=== PATIENT | female | born 1975 | race Caucasian/White ===

== ENCOUNTER → 2017-08-28 | Outpatient (CLI) | payer OTHER ==
[2017-08-28 11:19] LABS: ALT 42 U/L (9-52); AST 30 U/L (14-36); Albumin 3.6 g/dL (3.5-5.0); Alkaline Phosphatase 80 U/L (38-126); Anion Gap 10 mmol/L; Blood Urea Nitrogen 12 mg/dL (7-17); Carbon Dioxide 25 mmol/L (22-30); Chloride 99 mmol/L (98-107); Cholesterol 155 mg/dL (<200); Glucose 276 mg/dL (74-99); HDL Cholesterol 24 mg/dL (40-60); LDL Cholesterol,Calculated 94 mg/dL (0-99); Potassium 4.6 mmol/L (3.5-5.1); Sodium 134 mmol/L (137-145); Total Bilirubin 0.4 mg/dL (0.2-1.3); Total Protein 6.3 g/dL (6.3-8.2); Triglycerides 186 mg/dL (<150)
[2017-08-28 17:54] LABS: Hemoglobin A1C 10.4 % (4.0-6.0)
== END | disposition home or self-care (01) ==
LOC: LABWHC1 09:45
PROVIDERS: ATTEND Internal Medicine Endocrinology, Diabetes & Metabolism
DX: E11.65 Type 2 diabetes mellitus with hyperglycemia (principal)
CPT/HCPCS: 36415; 80053; 80061; 82043; 82570; 83036

== ENCOUNTER → 2018-03-20 | Outpatient (CLI) | payer BC ==
--- NOTE | 2018-03-20 17:37 | P.HPBAR ---
Bariatric H&P - History & Physicial H&P Date: 03/20/18 History & Physicial: Visit/CC: Patient initial contact: Initial weight: 117.651 kg Initial weight in pounds: Height: Initial BMI: Last weight: Current weight: Current weight in pounds: Current BMI: [place] body weight (based on NIH guidelines): Excess body weight loss: The patient is a 42 year-old F who presents for Bariatric Assessment. HPI: She is looking into the sleeve and now she is looking into the gastric bypass. No Crohns. No stomach or esophageal cancer. She has GERD. She has new heartburn on her diet. Has family history of all family members with troubles with their weight. Overweight her whole life. She has tried weight watchers, adipex. Most weight loss of 20 to 30 pounds with return. Highest weight of 286 pounds. History of cholecystectomy. She is pending a sleep study. DVTs in grandmother. She has history of panniculitis. PLAN: 1. Needs EGD 2. [facility] Past Medical History Past Medical History: Diabetes Mellitus, Hyperlipidemia, Hypertension History of Any Multi-Drug Resistant Organisms: None Reported Past Surgical History: Adenoidectomy, Cholecystectomy, Tonsillectomy Past Anesthesia/Blood Transfusion Reactions: Motion Sickness, Postoperative Nausea & Vomiting (PONV) Past Psychological History: Anxiety, Depression Smoking Status: Former smoker Past Alcohol Use History: Rare Additional Past Alcohol Use History / Comment(s): stopped smoking in 2005 Past Drug Use History: None Reported - Past Family History Mother Family Medical History: AICD/Pacemaker, Hypertension Additional Family Medical History / Comment(s): maternal hx of diabetes Father Family Medical History: No Reported History Bariatric Checklist Checklist: Plan: Checklist: EGD: 1. Hiatal hernia: 2. H. Pylori: HgbA1c: Vitamin D: Smoking: Former smoker Primary care physician referral: Psychiatry clearance: Cardiology clearance: Sleep study: Diet journal: VTE risk score: VTE risk level: Rehab needs at discharge:
[2018-03-21 17:25] VITALS: BP 129/77; PULSE 90; TEMP 98.1; BMI 44.4
== END | disposition home or self-care (01) ==
LOC: BARWHC3 16:50
PROVIDERS: ATTEND Surgery Plastic and Reconstructive Surgery
DX: E66.3 Overweight (principal); K21.9 Gastro-esophageal reflux disease without esophagitis; Z68.41 Body mass index [BMI] 40.0-44.9, adult; Z87.2 Personal history of diseases of the skin and subcutaneous tissue; Z90.49 Acquired absence of other specified parts of digestive tract; Z87.891 Personal history of nicotine dependence; Z90.89 Acquired absence of other organs
CPT/HCPCS: 99211

== ENCOUNTER → 2018-03-23 | Outpatient (CLI) | payer BC ==
[2018-03-23 10:28] LABS: Basophils # (A) 0.1 k/uL (0-0.2); Basophils % (A) 1 %; Eosinophils # (A) 0.4 k/uL (0-0.7); Eosinophils % (A) 6 %; HCT 46.1 % (34.0-46.0); HGB 14.8 gm/dL (11.4-16.0); Lymphocytes # (A) 2.1 k/uL (1.0-4.8); Lymphocytes % (A) 32 %; MCH 30.3 pg (25.0-35.0); MCHC 32.2 g/dL (31.0-37.0); MCV 94.1 fL (80.0-100.0); Mean Platelet Volume 7.1; Monocytes # (A) 0.4 k/uL (0-1.0); Monocytes % (A) 6 %; Neutrophils # (A) 3.6 k/uL (1.3-7.7); Neutrophils % (A) 53 %; Platelet Count 255 k/uL (150-450); RBC 4.89 m/uL (3.80-5.40); RDW 13.8 % (11.5-15.5); WBC 6.8 k/uL (3.8-10.6)
[2018-03-23 10:35] LABS: INR 0.9 (<1.2); Partial Thromboplastin Time 25.5 sec (22.0-30.0); Prothrombin Time 10.1 sec (9.0-12.0)
[2018-03-23 17:01] LABS: Iron Saturation 26.5 (12.00-45.00)
[2018-03-23 17:02] LABS: Albumin 4.6 g/dL (3.80-4.90); Albumin/Globulin Ratio 1.84 (1.60-3.17); Calcium 9.7 mg/dL (8.7-10.3); Globulin 2.5 g/dL (1.6-3.3); LDL Cholesterol,Calculated 95.4 mg/dL (0.0-131.0); Magnesium 1.7 mg/dL (1.5-2.4); Phosphorus 4.1 mg/dL (2.4-5.1); Potassium 5.1 mmol/L (3.5-5.5); Total Bilirubin 0.5 mg/dL (0.3-1.2); Total Protein 7.1 g/dL (6.2-8.2); VLDL Calculation 26.6 mg/dL (5.00-40.00)
[2018-03-23 17:10] LABS: T4, Free (Free Thyroxine) 1.3 ng/dL (0.80-1.80)
[2018-03-23 17:11] LABS: Vitamin D 25 Hydroxy 35.5 ng/mL (30.0-100.0)
[2018-03-23 17:48] LABS: Parathyroid Hormone Intact 26.7 pg/mL (14.0-72.0)
[2018-03-23 20:18] LABS: Hemoglobin A1C 7.8 % (4.0-6.0)
[2018-03-26 08:28] LABS: Zinc, Serum 91 ug/dL (60-130)
[2018-03-26 09:45] LABS: Vitamin A 55 ug/dL (38-106)
[2018-03-27 07:52] LABS: Vit B1(Thiamine) 95 ug/L (38-122)
== END | disposition home or self-care (01) ==
LOC: LABWHC1 08:56
PROVIDERS: ATTEND Surgery Plastic and Reconstructive Surgery
DX: I10 Essential (primary) hypertension (principal); E78.2 Mixed hyperlipidemia; E11.21 Type 2 diabetes mellitus with diabetic nephropathy; E66.01 Morbid (severe) obesity due to excess calories; E21.1 Secondary hyperparathyroidism, not elsewhere classified; E89.1 Postprocedural hypoinsulinemia; D50.9 Iron deficiency anemia, unspecified; K90.9 Intestinal malabsorption, unspecified; E55.9 Vitamin D deficiency, unspecified; K76.9 Liver disease, unspecified; N19 Unspecified kidney failure; K50.90 Crohn's disease, unspecified, without complications; Z68.42 Body mass index [BMI] 45.0-49.9, adult
CPT/HCPCS: 36415; 80053; 80061; 82043; 82306; 82525; 82570; 82607; 82728; 82746; 83036; 83540; 83550; 83735; 83970; 84100; 84134; 84255; 84425; 84439; 84443; 84590; 84630; 85025; 85610; 85730; 93005

== ENCOUNTER → 2018-04-25 | Outpatient (CLI) | payer BC ==
--- NOTE | 2018-04-25 18:13 | PN ---
PROGRESS NOTE DATE OF SERVICE: 04/25/2018 This patient is a 42-year-old lady who has been re-evaluated in Sleep Center for obstructive sleep apnea-hypopnea syndrome. The patient had a polysomnogram done in January of 2016 which showed obstructive sleep apnea-hypopnea syndrome. Apnea-hypopnea index was 11 with oxygen desaturation to 74.6%. At that time the patient was not started on treatment with CPAP because the patient could not come back for the second sleep study at that moment; and finally, because of weather problems related to snowstorms, she was not started on CPAP. At present the patient is preparing for bariatric surgery and has been referred for re- evaluation of possible obstructive sleep apnea-hypopnea syndrome. Her sleep schedule on weekdays is from 10 p.m. to 6:30 a.m. and on weekends from 11 p.m. to 8:30 a.m. She wakes up several times at night. No history of hypnagogic hallucinations, sleep paralysis or cataplexy. She continues to have snoring. Steward Sleepiness Scale is 6. PAST MEDICAL HISTORY: Positive for: 1. Diabetes. 2. Hypertension. 3. Hyperlipidemia. 4. Anxiety. 5. Depression. 6. Lipoma of the right hip. PAST SURGICAL HISTORY: 1. Tonsillectomy. 2. Cholecystectomy. 3. Surgery for lipoma of right hip in 2015. MEDICATIONS: 1. NovoLog. 2. Janumet. 3. Glimepiride. 4. Farxiga. 5. Atorvastatin. 6. Lisinopril. 7. Gabapentin. 8. Phentermine. 9. Paroxetine. 10.Bupropion. 11. . 12.Xanax. PHYSICAL EXAMINATION: GENERAL: A pleasant patient in no distress. VITAL SIGNS: BP 112/61, HR 85, RR 16, height 5 feet 3-3/4 inches, weight 253.8 pounds, body mass index 43.8, temperature 98.9, oxygen saturation at room air 95%. HEENT: PERRLA, EOMI. Evaluation of oropharynx showed tongue protrudes midline. Moderately low to normal position of soft palate. NECK: Supple. No JVD. Thyroid is not palpable. LUNGS: Clear to percussion and to auscultation. Good air exchange. No wheezing or rhonchi. HEART: S1, S2 regular. No murmurs, gallops or rubs. ABDOMEN: Obese. EXTREMITIES: No clubbing or cyanosis. PROCESS SAFETY ENGINEER: Awake, alert, and oriented X3. Cranial nerves 2 to 7 intact. There is no fasciculation or atrophy. noted. No focal deficits observed. IMPRESSION: 1. Snoring, obstructive sleep apnea-hypopnea syndrome documented 2 years ago by polysomnogram. The patient continues to wake up from sleep with nocturia. Obstructive sleep apnea-hypopnea syndrome. 2. Obesity; body mass index 43.8. Patient is preparing for possible bariatric surgery. 3. Hypertension. 4. Diabetes mellitus. 5. Hyperlipidemia. 6. Anxiety. 7. Depression. 8. Status post tonsillectomy. 9. Status post cholecystectomy. 10.Status post lipoma of right hip removed. PLAN: 1. Home sleep apnea test for re-evaluation of patient's breathing during sleep. 2. Losing weight. 3. Following plan after reviewing sleep study. 4. No driving if feeling any sleepiness. 5. Preferable position during sleep is on the side. Thank you very much for allowing me to participate in the management of your patient. Sincerely, Yuniel Stallworth MD, PhD, FAASM Diplomat of [place] [employer] [place] [employer] Drying [employer] [facility] [place] MMODL / IJN: [id number] /
== END ==
LOC: SLEEP 16:20
PROVIDERS: ATTEND Internal Medicine
DX: G47.33 Obstructive sleep apnea (adult) (pediatric) (principal); E66.9 Obesity, unspecified; R35.1 Nocturia; E11.9 Type 2 diabetes mellitus without complications; I10 Essential (primary) hypertension; E78.5 Hyperlipidemia, unspecified; F41.9 Anxiety disorder, unspecified; F32.9 Major depressive disorder, single episode, unspecified; Z90.49 Acquired absence of other specified parts of digestive tract; Z90.89 Acquired absence of other organs; Z86.018 Personal history of other benign neoplasm; Z98.890 Other specified postprocedural states; Z79.4 Long term (current) use of insulin; Z79.84 Long term (current) use of oral hypoglycemic drugs; Z79.899 Other long term (current) drug therapy; Z68.41 Body mass index [BMI] 40.0-44.9, adult
CPT/HCPCS: 99211

== ENCOUNTER 2018-05-13 06:48 | Day surgery (SDC) | payer BC ==
[2018-05-09 12:10] VITALS: BMI 43.0
--- NOTE | 2018-05-13 06:10 | P.GSHP ---
History of Present Illness H&P Date: 05/13/18 CHIEF COMPLAINT: GERD HISTORY OF PRESENT ILLNESS: The patient is a 43-year-old female who presents reports gastroesophageal reflux disease. Upper endoscopy was offered for further evaluation and management. PAST MEDICAL HISTORY: Please see list. PAST SURGICAL HISTORY: Please see list. MEDICATIONS: Please see list. ALLERGIES: Please see list. SOCIAL HISTORY: No illicit drug use FAMILY HISTORY: No reports of Crohn disease or ulcerative colitis. REVIEW OF ORGAN SYSTEMS: CONSTITUTIONAL: No reports of fevers or chills. GI: Denies any blood in stools or constipation. PHYSICAL EXAM: VITAL SIGNS: Stable GENERAL: Well-developed and pleasant in no acute distress. HEENT: No scleral icterus. Extraocular movements grossly intact. Moist buccal mucosa. NECK: Supple without lymphadenopathy. CHEST: Unlabored respirations. Equal bilateral excursions. CARDIOVASCULAR: Regular rate and rhythm. Distal 2+ pulses. ABDOMEN: Soft, nondistended. MUSCULOSKELETAL: No clubbing, cyanosis, or edema. ASSESSMENT: 1. Gastroesophageal reflux disease PLAN: 1. Recommend proceeding with an upper endoscopy Past Medical History Past Medical History: Diabetes Mellitus, Hyperlipidemia, Hypertension, Neurologic Disorder, Skin Disorder Additional Past Medical History / Comment(s): diabetic neuropathy to bilateral feet, psoriasis, History of Any Multi-Drug Resistant Organisms: None Reported Past Surgical History: Adenoidectomy, Cholecystectomy, Tonsillectomy Additional Past Surgical History / Comment(s): lypoma removed from right hip in 2016, EGD Past Anesthesia/Blood Transfusion Reactions: Motion Sickness, Postoperative Nausea & Vomiting (PONV) Additional Past Anesthesia/Blood Transfusion Reaction / Comment(s): No blood transfusion to date Smoking Status: Former smoker - Past Family History Mother Family Medical History: AICD/Pacemaker, Hypertension Additional Family Medical History / Comment(s): maternal hx of diabetes Father History Unknown: Yes Family Medical History: No Reported History Medications and Allergies Home Medications Medication Instructions Recorded Confirmed Type Atorvastatin [Lipitor] 10 mg PO HS 09/08/15 05/09/18 History Lisinopril-Hctz 20-12.5 mg 1 tab PO QAM 09/08/15 05/09/18 History [Zestoretic 20-12.5] PARoxetine HCL 40 mg PO HS 09/08/15 05/09/18 History buPROPion HCL [Wellbutrin SR] 200 mg PO BID 09/08/15 05/09/18 History sitaGLIPtin PHOS/metFORMIN HCL 1 each PO BID 09/08/15 05/09/18 History [Janumet 50-1,000 mg Tablet] ALPRAZolam [Xanax] 0.25 mg PO DAILY PRN 10/07/15 05/09/18 History Multivitamins, Thera [Multivitamin] 1 tab PO DAILY 10/07/15 05/09/18 History Insuln Asp Prt/Insulin Aspart 82 units SQ AC-BRKFST 12/15/15 05/09/18 History [NovoLOG MIX 70-30 VIAL] Insuln Asp Prt/Insulin Aspart 86 units SQ AC-SUPPER 12/15/15 05/09/18 History [NovoLOG MIX 70-30 VIAL] Clobetasol Propionate [Temovate 1 applic TOPICAL BID 03/21/18 05/09/18 History 0.05% Cream] Dapagliflozin Propanediol [Farxiga] 5 mg PO DAILY 03/21/18 05/09/18 History Glimepiride [Amaryl] 4 mg PO DAILY 03/21/18 05/09/18 History Phentermine HCl [Adipex-P] 37.5 mg PO DAILY 03/21/18 05/09/18 History Triamcinolone 0.1% Cream [Kenalog 1 applicatio TOPICAL TID PRN 03/21/18 05/09/18 History 0.1% Cream] Semaglutide [Ozempic] 0.5 mg SQ TH 05/09/18 05/09/18 History Allergies Allergy/AdvReac Type Severity Reaction Status Date / Time environmental AdvReac Unknown Uncoded 05/09/18 12:06
[~2018-05-13 06:48] MED LIST: LACTATED RINGERS 1,000 ML IV SCH
[2018-05-13 07:22] VITALS: RESP 16; TEMP 98.5
[2018-05-13 07:26] LABS: Glucose,Whole Blood 133 mg/dL (75-99)
[2018-05-13] MEDS ORDERED: KETAMINE 10 MG/ML 20 ML VIAL ONE (07:31)
[2018-05-13] MEDS ORDERED: LIDOCAINE 1% INJ 10MG/ML (20 ML MDV) ONE (07:31)
[2018-05-13] MEDS ORDERED: GLYCOPYRROLATE 0.2 MG/ML 2 ML VIAL ONE (07:31)
[2018-05-13] MEDS ORDERED: PROPOFOL 10 MG/ML 20 ML VIAL IV ONE (07:31)
--- NOTE | 2018-05-13 07:43 | P.PCN ---
Date of Procedure: 05/13/18 Description of Procedure: PREOPERATIVE DIAGNOSIS: Gastroesophageal reflux disease. Morbid obesity. POSTOPERATIVE DIAGNOSIS: Morbid obesity. Gastritis. Gastroesophageal reflux disease. Diaphragmatic hiatal hernia OPERATION: Esophagogastroduodenoscopy with biopsies along antrum. SURGEON: Stefanie Isabel MD ANESTHESIA: MAC. INDICATIONS: The patient is a 43-year-old female who presents with a history of reflux disease. Benefits and risks of the procedure were described. Informed consent was obtained. DESCRIPTION: The patient was brought into the endoscopy suite and laid in the left lateral decubitus position. An Olympus gastroscope was passed along the posterior oropharynx down to the distal esophagus where the squamocolumnar junction was encountered at 37 cm from the incisors. The stomach was entered and no bile reflux was found. Additional findings are listed below. Biopsies with cold f orceps were obtained of the antrum. The first through third portion of the duodenum was examined and unremarkable. Retroflexion of the scope confirmed Hill grade 4 lower esophageal valve. The squamocolumnar junction demonstrated LA grade B erosive esophagitis. The stomach was desufflated. The patient tolerated the procedure well. FINDINGS: Squamocolumnar junction 37 cm from the incisors. Diaphragmatic hiatus at 40 cm. Hiatal hernia, 3 cm Hill grade 4 lower esophageal valve. LA grade B erosive esophagitis. No active duodenitis. Chronic gastritis, superficial RECOMMENDATIONS: Upper endoscopy as needed. Plan - Discharge Summary Discharge Rx Participant: Yes New Discharge Prescriptions: New Omeprazole 40 mg PO DAILY #14 capsule. No Action Atorvastatin [Lipitor] 10 mg PO HS sitaGLIPtin PHOS/metFORMIN HCL [Janumet 50-1,000 mg Tablet] 1 each PO BID buPROPion HCL [Wellbutrin SR] 200 mg PO BID Lisinopril-Hctz 20-12.5 mg [Zestoretic 20-12.5] 1 tab PO QAM PARoxetine HCL 40 mg PO HS Multivitamins, Thera [Multivitamin] 1 tab PO DAILY ALPRAZolam [Xanax] 0.25 mg PO DAILY PRN PRN Reason: Anxiety Insuln Asp Prt/Insulin Aspart [NovoLOG MIX 70-30 VIAL] 82 units SQ AC-BRKFST Insuln Asp Prt/Insulin Aspart [NovoLOG MIX 70-30 VIAL] 86 units SQ AC-SUPPER Triamcinolone 0.1% Cream [Kenalog 0.1% Cream] 1 applicatio TOPICAL TID PRN PRN Reason: Rash Clobetasol Propionate [Temovate 0.05% Cream] 1 applic TOPICAL BID Phentermine HCl [Adipex-P] 37.5 mg PO DAILY Dapagliflozin Propanediol [Farxiga] 5 mg PO DAILY Glimepiride [Amaryl] 4 mg PO DAILY Semaglutide [Ozempic] 0.5 mg SQ TH Gabapentin [Neurontin] 300 mg PO TID Discharge Medication List Atorvastatin [Lipitor] 10 mg PO HS 09/08/15 [History] Lisinopril-Hctz 20-12.5 mg [Zestoretic 20-12.5] 1 tab PO QAM 09/08/15 [History] PARoxetine HCL 40 mg PO HS 09/08/15 [History] buPROPion HCL [Wellbutrin SR] 200 mg PO BID 09/08/15 [History] sitaGLIPtin PHOS/metFORMIN HCL [Janumet 50-1,000 mg Tablet] 1 each PO BID 09/08/15 [History] ALPRAZolam [Xanax] 0.25 mg PO DAILY PRN 10/07/15 [History] Multivitamins, Thera [Multivitamin] 1 tab PO DAILY 10/07/15 [History] Insuln Asp Prt/Insulin Aspart [NovoLOG MIX 70-30 VIAL] 82 units SQ AC-BRKFST 12/15/15 [History] Insuln Asp Prt/Insulin Aspart [NovoLOG MIX 70-30 VIAL] 86 units SQ AC-SUPPER 12/15/15 [History] Clobetasol Propionate [Temovate 0.05% Cream] 1 applic TOPICAL BID 03/21/18 [History] Dapagliflozin Propanediol [Farxiga] 5 mg PO DAILY 03/21/18 [History] Glimepiride [Amaryl] 4 mg PO DAILY 03/21/18 [History] Phentermine HCl [Adipex-P] 37.5 mg PO DAILY 03/21/18 [History] Triamcinolone 0.1% Cream [Kenalog 0.1% Cream] 1 applicatio TOPICAL TID PRN 03/21/18 [History] Semaglutide [Ozempic] 0.5 mg SQ TH 05/09/18 [History] Gabapentin [Neurontin] 300 mg PO TID 05/13/18 [History] Omeprazole 40 mg PO DAILY #14 capsule. 05/13/18 [Rx] Follow up Appointment(s)/Referral(s): Bariatric Center,. [NON-STAFF] - 06/12/18 Patient Instructions/Handouts: Hiatal Hernia (DC), Gastroesophageal Reflux Disease (DC) Discharge Disposition: HOME SELF-CARE
[2018-05-13 08:15] VITALS: BP 126/70; PULSE 88
== END 2018-05-13 08:31 | disposition home or self-care (01) ==
LOC: ORWHC2ENDO 06:48
PROVIDERS: ATTEND Surgery Plastic and Reconstructive Surgery
DX: K21.0 Gastro-esophageal reflux disease with esophagitis (principal); E66.01 Morbid (severe) obesity due to excess calories; K29.50 Unspecified chronic gastritis without bleeding; K44.9 Diaphragmatic hernia without obstruction or gangrene; Z79.4 Long term (current) use of insulin; E11.40 Type 2 diabetes mellitus with diabetic neuropathy, unspecified; E78.5 Hyperlipidemia, unspecified; I10 Essential (primary) hypertension; L40.9 Psoriasis, unspecified; Z87.891 Personal history of nicotine dependence; Z82.49 Family history of ischemic heart disease and other diseases of the circulatory system; Z79.899 Other long term (current) drug therapy
CPT/HCPCS: 81025; 88305; 43239; J2001; J2704

== ENCOUNTER → 2018-06-12 | Outpatient (CLI) | payer BC ==
[2018-06-12 14:51] VITALS: BP 121/77; PULSE 87; RESP 16; TEMP 98.3; BMI 43.0
--- NOTE | 2018-06-12 15:54 | P.PN ---
Subjective Progress Note Date: 06/12/18 DATE OF SERVICE: 06/12/2018 CHIEF COMPLAINT: Morbid obesity HISTORY OF PRESENT ILLNESS: Mariama Aquino is a 43-year-old female who comes with lifelong morbid obesity. She is looking into the gastric bypass. She reports moderate gastroesophageal reflux disease and has diabetes type 2. She has completed psych assessment. She has also completed EGD. No reports of fevers or chills. No active abdominal pain, chest pain or dysphagia. At height of 5 feet 4 inches, her ideal body weight is 154 pounds. Today, she comes in 250 pounds from 258 pounds. She has lost 8 pounds in 3 months. Her highest weight was 286 pounds. Her body mass index highest was 49.2. Today her BMI is 43.1. She is 106 pounds overweight. PAST MEDICAL HISTORY: 1. Morbid obesity due to excess calories 2. Body mass index of 49.2, initial 3. Osteoarthritis of the knees. 4. Hypertensive heart disease. 5. Gastroesophageal reflux disease 6. Hyperlipidemia 7. Anxiety disorder 8. Depressive disorder 9. Obstructive sleep apnea 10. Diabetes type 2, insulin dependent 11. Diabetic neuropathy 12. Psoriasis PAST SURGICAL HISTORY: 1. Tonsillectomy 2. Adenoidectomy 3. Cholecystectomy 4. Removal of lipoma HOME MEDICATIONS: ALLERGIES: Home Medications Medication Instructions Recorded Confirmed Atorvastatin [Lipitor] 10 mg PO HS 09/08/15 06/12/18 Lisinopril-Hctz 20-12.5 mg 1 tab PO QAM 09/08/15 06/12/18 [Zestoretic 20-12.5] PARoxetine HCL 40 mg PO HS 09/08/15 06/12/18 buPROPion HCL [Wellbutrin SR] 200 mg PO BID 09/08/15 06/12/18 sitaGLIPtin PHOS/metFORMIN HCL 1 each PO BID 09/08/15 06/12/18 [Janumet 50-1,000 mg Tablet] ALPRAZolam [Xanax] 0.25 mg PO DAILY PRN 10/07/15 06/12/18 Multivitamins, Thera [Multivitamin] 1 tab PO DAILY 10/07/15 06/12/18 Insuln Asp Prt/Insulin Aspart 82 units SQ AC-BRKFST 12/15/15 06/12/18 [NovoLOG MIX 70-30 VIAL] Insuln Asp Prt/Insulin Aspart 86 units SQ AC-SUPPER 12/15/15 06/12/18 [NovoLOG MIX 70-30 VIAL] Clobetasol Propionate [Temovate 1 applic TOPICAL BID 03/21/18 06/12/18 0.05% Cream] Dapagliflozin Propanediol [Farxiga] 5 mg PO DAILY 03/21/18 06/12/18 Glimepiride [Amaryl] 4 mg PO DAILY 03/21/18 06/12/18 Phentermine HCl [Adipex-P] 37.5 mg PO DAILY 03/21/18 06/12/18 Triamcinolone 0.1% Cream [Kenalog 1 applicatio TOPICAL TID PRN 03/21/18 06/12/18 0.1% Cream] Semaglutide [Ozempic] 0.5 mg SQ TH 05/09/18 06/12/18 Gabapentin [Neurontin] 300 mg PO TID 05/13/18 06/12/18 Omeprazole [PriLOSEC] 10 mg PO DAILY 06/12/18 06/12/18 Previous Rx's Medication Instructions Recorded Omeprazole 40 mg PO DAILY #14 capsule. 05/13/18 Allergies Allergy/AdvReac Type Severity Reaction Status Date / Time environmental AdvReac Unknown Uncoded 06/12/18 14:45 SOCIAL HISTORY: Past tobacco use. FAMILY HISTORY: No family history of ulcerative colitis disease or Crohn's disease. Family history of morbid obesity. No lupus in the family. No reports of stomach or esophageal cancer. DVTs in grandmother. REVIEW OF ORGAN SYSTEMS: CONSTITUTIONAL: At height of 5 feet 4 inches, her ideal body weight is 154 pounds. Her highest weight was 286 pounds. Her body mass index highest was 49.2. HEENT: Denies any active troubles with vision or hearing. No troubles with swallowing. ENDOCRINE: Has diabetes. No hypothyroidism. CARDIOVASCULAR: No reports of palpitations or heart attacks or chest pain. RESPIRATORY: Has daytime somnolence. Has asthma. GI: Denies any bright red blood per rectum. No diarrhea. Has gastroesophageal reflux disease. MUSCULOSKELETAL: Has lower back pain and joint pain. Has osteoarthritis of the knees. NEURO: No headaches. No seizure disorders. Has neuropathy PSYCH: Has depression. No suicidal ideation. Has anxiety. RHEUMATOLOGIC: No lupus. No rheumatoid arthritis. HEMATOLOGIC: Denies any abnormal bleeding or bruising. No personal history of DVTs. SKIN: Has rash and panniculitis. No skin cancer. PHYSICAL EXAM: VITAL SIGNS: Height 5 foot 4 inches, weight 250 pounds. BMI 43.1 Vital Signs Temp 98.3 F 06/12/18 14:44 Pulse 87 06/12/18 14:44 Resp 16 06/12/18 14:44 BP 121/77 06/12/18 14:44 Pulse Ox GENERAL: Well-developed in no acute distress. HEENT: No scleral icterus. Extraocular movements grossly intact. Hears conversational speech. No nasal drainage. NECK: Supple without lymphadenopathy. CHEST: Nonlabored respirations with equal bilateral excursions. CARDIOVASCULAR: Regular rate and regular rhythm. Distal 2+ pulses. ABDOMEN: Obese, soft, nontender, nondistended. Has panniculitis. MUSCULOSKELETAL: No clubbing, cyanosis. Gross strength 5/5 distal lower extremities. NEURO: No focal or lateralizing signs. Cranial nerves 2 through 12 grossly within normal limits. PSYCH: Appropriate affect. Alert and oriented to person, place and time. SKIN: Good skin turgor. Well perfused. EGD FINDINGS: Squamocolumnar junction 37 cm from the incisors. Diaphragmatic hiatus at 40 cm. Hiatal hernia, 3 cm Hill grade 4 lower esophageal valve. LA grade B erosive esophagitis. No active duodenitis. Chronic gastritis, superficial Final Pathologic Diagnosis GASTRIC ANTRUM, BIOPSY: Chronic gastritis with minimal activity. Helicobacter pylori organisms are not identified on routine H+E sections. LABS: Hgb A1C elevated 7.8%, ALT elevated 46, HDL is low, Selenium elevated 201 EKG: Normal sinus rhythm ASSESSMENT: 1. Morbid obesity due to excess calories 2. Body mass index of 49.2, initial 3. Osteoarthritis of the knees. 4. Hypertensive heart disease. 5. Gastroesophageal reflux disease 6. Hyperlipidemia 7. Anxiety disorder 8. Depressive disorder 9. Obstructive sleep apnea 10. Diabetes type 2, insulin dependent 11. Diabetic neuropathy 12. Psoriasis 13. Hiatal hernia PLAN: 1. She wants the gastric bypass. Benefits and risk of the procedure including diabetic control, improvement of gastroesophageal reflux disease, and increased complications over 11% per [facility] calculator described. 2. Completion of psych done and completed. 3. Follow up after completion of bariatric profile. Objective - Vital Signs Vital signs: Vital Signs Temp 98.3 F 06/12/18 14:44 Pulse 87 06/12/18 14:44 Resp 16 06/12/18 14:44 BP 121/77 06/12/18 14:44 Pulse Ox Intake & Output 06/11/18 06/12/18 06/12/18 18:59 06:59 18:59 Weight 113.852 kg
== END | disposition home or self-care (01) ==
LOC: BARWHC3 13:39
PROVIDERS: ATTEND Surgery Plastic and Reconstructive Surgery
DX: E66.01 Morbid (severe) obesity due to excess calories (principal); M17.0 Bilateral primary osteoarthritis of knee; I11.9 Hypertensive heart disease without heart failure; K21.9 Gastro-esophageal reflux disease without esophagitis; E78.5 Hyperlipidemia, unspecified; F41.9 Anxiety disorder, unspecified; F32.9 Major depressive disorder, single episode, unspecified; G47.33 Obstructive sleep apnea (adult) (pediatric); E11.40 Type 2 diabetes mellitus with diabetic neuropathy, unspecified; L40.9 Psoriasis, unspecified; K44.9 Diaphragmatic hernia without obstruction or gangrene; Z68.42 Body mass index [BMI] 45.0-49.9, adult; Z87.891 Personal history of nicotine dependence; Z79.4 Long term (current) use of insulin; Z79.899 Other long term (current) drug therapy
CPT/HCPCS: 99211

== ENCOUNTER → 2018-08-01 | Outpatient (CLI) | payer BC ==
--- NOTE | 2018-08-01 19:41 | PN ---
PROGRESS NOTE DATE OF SERVICE: 08/01/2018 This patient is a 43-year-old lady has been followed in Sleep Center for treatment of obstructive sleep apnea-hypopnea syndrome. Recently the patient had a home sleep apnea test that showed obstructive sleep apnea with apnea-hypopnea index 9.6 and oxygen desaturation to 73%. The patient was started on treatment with AutoPap and today is her first visit after treatment was started. I checked her CPAP unit. Range of the pressure is 5-15 with average pressure 12.7. The patient demonstrated great compliance, using it 25/30 nights, with 24/30 nights for more than 4 hours. Average usage 6.6 hours. Leak is only 10 L/minute, which is in good range. Apnea-hypopnea index totally normalized to 0.5. Gilbert Sleepiness Scale today is 3, which is normal. MEDICATIONS: 1. NovoLog. 2. Janumet. 3. Glimepiride. 4. Farxiga. 5. Atorvastatin. 6. Lisinopril. 7. Gabapentin. 8. Phentermine. 9. Paroxetine. 10.Bupropion. 11.Xanax. PHYSICAL EXAMINATION: GENERAL: A pleasant patient in no distress. VITAL SIGNS: BP 142/69, HR 90, RR 16, weight 250.4, temperature 98.1, oxygen saturation at room air 96%. HEENT: PERRLA, EOMI. Evaluation of oropharynx showed tongue protrudes midline. NECK: Supple. No JVD. Thyroid is not palpable. LUNGS: Clear to percussion and to auscultation. Good air exchange. No wheezing or rhonchi. HEART: S1, S2 regular. No murmurs, gallops or rubs. ABDOMEN: Slightly obese. EXTREMITIES: No clubbing or cyanosis. COMMUNITY RECREATION COORDINATOR: Awake, alert, and oriented X3. Cranial nerves 2 to 7 intact. There is no fasciculation or atrophy. noted. No focal deficits observed. IMPRESSION: 1. Obstructive sleep apnea-hypopnea syndrome; apnea-hypopnea index 9.6, under full control with CPAP. The patient has demonstrated good compliance with treatment, benefitting from treatment. 2. Hypertension. 3. Diabetes. 4. Hyperlipidemia. 5. History of anxiety. 6. History of depression. 7. Status post tonsillectomy. 8. Status post cholecystectomy. 9. Status post lipoma of right hip removed. PLAN: 1. Patient will continue to use CPAP equipment every night for the whole night. 2. Watching and losing weight. 3. Sleep hygiene with regular time in bed for at least 8 hours. 4. No driving if feeling any sleepiness. 5. I will maintain all necessary CPAP prescriptions, including mask, tube, filters. 6. Follow-up visit in 10 months, or earlier if patient has any problems. Thank you very much for allowing me to participate in the management of your patient. Sincerely, Yuniel Stallworth MD, PhD, FAASM Diplomat of [place] [employer] [place] [employer] Monitoring Engineer of [facility] [place] MMODL / IJN: [id number] /
== END ==
LOC: SLEEP 16:24
PROVIDERS: ATTEND Internal Medicine
DX: G47.33 Obstructive sleep apnea (adult) (pediatric) (principal); I10 Essential (primary) hypertension; E11.9 Type 2 diabetes mellitus without complications; E78.5 Hyperlipidemia, unspecified; F41.9 Anxiety disorder, unspecified; F32.9 Major depressive disorder, single episode, unspecified; Z90.89 Acquired absence of other organs; Z90.49 Acquired absence of other specified parts of digestive tract; Z99.89 Dependence on other enabling machines and devices; Z79.899 Other long term (current) drug therapy; Z86.018 Personal history of other benign neoplasm; Z98.890 Other specified postprocedural states

== ENCOUNTER → 2018-08-19 | Outpatient (CLI) | payer BC ==
[2018-08-19 14:13] VITALS: BMI 42.9
== END ==
LOC: BARWHC3 08:58
PROVIDERS: ATTEND Surgery
DX: E66.01 Morbid (severe) obesity due to excess calories (principal); Z68.41 Body mass index [BMI] 40.0-44.9, adult
CPT/HCPCS: 97804

== ENCOUNTER → 2018-09-11 | Outpatient (CLI) | payer BC ==
[2018-09-11 16:28] VITALS: BP 116/77; PULSE 85; RESP 16; TEMP 98; BMI 42.2
--- NOTE | 2018-10-25 09:41 | P.PN ---
Subjective Progress Note Date: 09/11/18 DATE OF SERVICE: 09/11/2018 CHIEF COMPLAINT: Morbid obesity HISTORY OF PRESENT ILLNESS: Mariama Aquino is a 43-year-old female who comes with lifelong morbid obesity. As a result of her morbid obesity she has developed hypertensive heart disease, hyperlipidemia, obstructive sleep apnea and insulin-dependent diabetes type 2. She has completed medical risk assessment including medical supervised weight loss. She is looking into the gastric bypass. She reports moderate gastroesophageal reflux disease as well. At height of 5 feet 4 inches, her ideal body weight is 154 pounds. Today, she comes in 245 pounds from 250 pounds, 3 months ago. She has lost 5 pounds in 3 months. Her highest weight was 286 pounds. Her body mass index highest was 49.2. Today her BMI is 42.2. She is 101 pounds overweight. PAST MEDICAL HISTORY: 1. Morbid obesity due to excess calories 2. Body mass index of 49.2, initial 3. Osteoarthritis of the knees. 4. Hypertensive heart disease. 5. Gastroesophageal reflux disease 6. Hyperlipidemia 7. Anxiety disorder 8. Depressive disorder 9. Obstructive sleep apnea 10. Diabetes type 2, insulin dependent 11. Diabetic neuropathy 12. Psoriasis PAST SURGICAL HISTORY: 1. Tonsillectomy 2. Adenoidectomy 3. Cholecystectomy 4. Removal of lipoma HOME MEDICATIONS: ALLERGIES: Home Medications Medication Instructions Recorded Confirmed Atorvastatin [Lipitor] 10 mg PO HS 09/08/15 06/12/18 Lisinopril-Hctz 20-12.5 mg 1 tab PO QAM 09/08/15 06/12/18 [Zestoretic 20-12.5] PARoxetine HCL 40 mg PO HS 09/08/15 06/12/18 buPROPion HCL [Wellbutrin SR] 200 mg PO BID 09/08/15 06/12/18 sitaGLIPtin PHOS/metFORMIN HCL 1 each PO BID 09/08/15 06/12/18 [Janumet 50-1,000 mg Tablet] ALPRAZolam [Xanax] 0.25 mg PO DAILY PRN 10/07/15 06/12/18 Multivitamins, Thera [Multivitamin] 1 tab PO DAILY 10/07/15 06/12/18 Insuln Asp Prt/Insulin Aspart 82 units SQ AC-BRKFST 12/15/15 06/12/18 [NovoLOG MIX 70-30 VIAL] Insuln Asp Prt/Insulin Aspart 86 units SQ AC-SUPPER 12/15/15 06/12/18 [NovoLOG MIX 70-30 VIAL] Clobetasol Propionate [Temovate 1 applic TOPICAL BID 03/21/18 06/12/18 0.05% Cream] Dapagliflozin Propanediol [Farxiga] 5 mg PO DAILY 03/21/18 06/12/18 Glimepiride [Amaryl] 4 mg PO DAILY 03/21/18 06/12/18 Phentermine HCl [Adipex-P] 37.5 mg PO DAILY 03/21/18 06/12/18 Triamcinolone 0.1% Cream [Kenalog 1 applicatio TOPICAL TID PRN 03/21/18 06/12/18 0.1% Cream] Semaglutide [Ozempic] 0.5 mg SQ TH 05/09/18 06/12/18 Gabapentin [Neurontin] 300 mg PO TID 05/13/18 06/12/18 Omeprazole [PriLOSEC] 10 mg PO DAILY 06/12/18 06/12/18 Previous Rx's Medication Instructions Recorded Omeprazole 40 mg PO DAILY #14 capsule. 05/13/18 Allergies Allergy/AdvReac Type Severity Reaction Status Date / Time environmental AdvReac Unknown Uncoded 06/12/18 14:45 SOCIAL HISTORY: Past tobacco use. FAMILY HISTORY: No family history of ulcerative colitis disease or Crohn's disease. Family history of morbid obesity. No lupus in the family. No reports of stomach or esophageal cancer. DVTs in grandmother. REVIEW OF ORGAN SYSTEMS: CONSTITUTIONAL: At height of 5 feet 4 inches, her ideal body weight is 154 pounds. Her highest weight was 286 pounds. Her body mass index highest was 49.2. HEENT: Denies any active troubles with vision or hearing. No troubles with swallowing. ENDOCRINE: Has diabetes. No hypothyroidism. CARDIOVASCULAR: No reports of palpitations or heart attacks or chest pain. RESPIRATORY: Has daytime somnolence. Has asthma. GI: Denies any bright red blood per rectum. No diarrhea. Has gastroesophageal reflux disease. MUSCULOSKELETAL: Has lower back pain and joint pain. Has osteoarthritis of the knees. NEURO: No headaches. No seizure disorders. Has neuropathy PSYCH: Has depression. No suicidal ideation. Has anxiety. RHEUMATOLOGIC: No lupus. No rheumatoid arthritis. HEMATOLOGIC: Denies any abnormal bleeding or bruising. No personal history of DVTs. SKIN: Has rash and panniculitis. No skin cancer. PHYSICAL EXAM: VITAL SIGNS: Height 5 foot 4 inches, weight 245 pounds. BMI 42.2 Vital Signs Temp 98 F 09/11/18 16:25 Pulse 85 09/11/18 16:25 Resp 16 09/11/18 16:25 BP 116/77 09/11/18 16:25 Pulse Ox GENERAL: Well-developed in no acute distress. HEENT: No scleral icterus. Extraocular movements grossly intact. Hears conversational speech. No nasal drainage. NECK: Supple without lymphadenopathy. CHEST: Nonlabored respirations with equal bilateral excursions. CARDIOVASCULAR: Regular rate and regular rhythm. Distal 2+ pulses. ABDOMEN: Obese, soft, nontender, nondistended. Has panniculitis. MUSCULOSKELETAL: No clubbing, cyanosis. Gross strength 5/5 distal lower extremities. NEURO: No focal or lateralizing signs. Cranial nerves 2 through 12 grossly within normal limits. PSYCH: Appropriate affect. Alert and oriented to person, place and time. SKIN: Good skin turgor. Well perfused. ASSESSMENT: 1. Morbid obesity due to excess calories 2. Body mass index of 49.2, initial 3. Osteoarthritis of the knees. 4. Hypertensive heart disease. 5. Gastroesophageal reflux disease 6. Hyperlipidemia 7. Anxiety disorder 8. Depressive disorder 9. Obstructive sleep apnea 10. Diabetes type 2, insulin dependent 11. Diabetic neuropathy 12. Psoriasis 13. Hiatal hernia PLAN: 1. She wants the gastric bypass. Benefits and risk of the procedure including diabetic control, improvement of gastroesophageal reflux disease, and increased complications over 11% per [facility] [place] described. Bariatric options among a sleeve, band and a Ham-en-Y gastric bypass were reviewed in detail. The patient elected for a gastric bypass. Robotic assisted approach described. 2. The [place] [facility] Data was also reviewed with benefits and risks as described. 3. An 8 page second-generation bariatric consent form was reviewed in detail including potential of bleeding, infection, leaks, adequate weight loss, nutritional deficiencies which the patient demonstrated understanding of the risks. 4. A 2 week high-protein low caloric 800 kcal diet described to address hepatomegaly. 5. Preoperative labs including complete metabolic panel and CBC with type and screen recommended. 6. DVT prophylaxis per [place] [facility]. 7. Antibiotic prophylaxis. 8. Inpatient hospitalization anticipated for more than 2 nights. 9. All questions and concerns were addressed with the patient. 10. Overall she is high risk for surgical complications with diabetes including multiple comorbidities. Objective - Vital Signs Vital signs: Vital Signs Temp 98 F 09/11/18 16:25 Pulse 85 09/11/18 16:25 Resp 16 09/11/18 16:25 BP 116/77 09/11/18 16:25 Pulse Ox
== END ==
LOC: BARWHC3 15:53
PROVIDERS: ATTEND Surgery Plastic and Reconstructive Surgery
DX: E66.01 Morbid (severe) obesity due to excess calories (principal); M17.0 Bilateral primary osteoarthritis of knee; K21.9 Gastro-esophageal reflux disease without esophagitis; E78.5 Hyperlipidemia, unspecified; F41.8 Other specified anxiety disorders; G47.33 Obstructive sleep apnea (adult) (pediatric); E11.9 Type 2 diabetes mellitus without complications; E11.42 Type 2 diabetes mellitus with diabetic polyneuropathy; L40.9 Psoriasis, unspecified; K44.9 Diaphragmatic hernia without obstruction or gangrene; I11.9 Hypertensive heart disease without heart failure; Z68.42 Body mass index [BMI] 45.0-49.9, adult; Z79.4 Long term (current) use of insulin; Z87.891 Personal history of nicotine dependence; Z91.048 Other nonmedicinal substance allergy status; Z79.899 Other long term (current) drug therapy; Z90.49 Acquired absence of other specified parts of digestive tract
CPT/HCPCS: 99211

== ENCOUNTER → 2018-09-17 | Outpatient (CLI) | payer BC ==
[2018-09-17 13:27] LABS: Basophils # (A) 0.1 k/uL (0-0.2); Basophils % (A) 1 %; Eosinophils # (A) 0.4 k/uL (0-0.7); Eosinophils % (A) 4 %; HCT 41.8 % (34.0-46.0); HGB 13.7 gm/dL (11.4-16.0); Lymphocytes # (A) 2.6 k/uL (1.0-4.8); Lymphocytes % (A) 30 %; MCH 29.6 pg (25.0-35.0); MCHC 32.8 g/dL (31.0-37.0); MCV 90.1 fL (80.0-100.0); Monocytes # (A) 0.5 k/uL (0-1.0); Monocytes % (A) 6 %; Neutrophils % (A) 57 %; Platelet Count 254 k/uL (150-450); RBC 4.64 m/uL (3.80-5.40); RDW 14.1 % (11.5-15.5); WBC 8.8 k/uL (3.8-10.6)
[2018-09-17 13:31] LABS: ALT 49 U/L (9-52); AST 39 U/L (14-36); African American GFR (CKD) >90 (>60 ml/min/1.73 sqM); Albumin 4.2 g/dL (3.5-5.0); Alkaline Phosphatase 55 U/L (38-126); Anion Gap 13 mmol/L; Blood Urea Nitrogen 18 mg/dL (7-17); Calcium 9.7 mg/dL (8.4-10.2); Carbon Dioxide 24 mmol/L (22-30); Chloride 97 mmol/L (98-107); Glucose 142 mg/dL (74-99); Non-African American GFR(CKD) >90 (>60 ml/min/1.73 sqM); Potassium 4.4 mmol/L (3.5-5.1); Sodium 134 mmol/L (137-145); Total Bilirubin 0.5 mg/dL (0.2-1.3); Total Protein 7.4 g/dL (6.3-8.2)
== END | disposition home or self-care (01) ==
LOC: LABWHC1 12:39
PROVIDERS: ATTEND Surgery Plastic and Reconstructive Surgery
DX: Z01.812 Encounter for preprocedural laboratory examination (principal)
CPT/HCPCS: 36415; 80053; 85025

== ENCOUNTER 2018-09-23 08:00 | Inpatient (IN) | payer BC ==
--- NOTE | 2018-09-22 21:52 | P.GSHP ---
History of Present Illness H&P Date: 09/23/18 DATE OF SERVICE: 09/23/2018 CHIEF COMPLAINT: Morbid obesity HISTORY OF PRESENT ILLNESS: Mariama Aquino is a 43-year-old female who comes with lifelong morbid obesity. She is looking into the gastric bypass. She reports moderate gastroesophageal reflux disease and has diabetes type 2. She has completed psych assessment. She has also completed EGD. No reports of fevers or chills. No active abdominal pain, chest pain or dysphagia. At height of 5 feet 4 inches, her ideal body weight is 154 pounds. Today, she comes in 245 pounds from 250 pounds, 4 months ago. She has lost 5 pounds in 4 months. Her highest weight was 286 pounds. Her body mass index highest was 49.2. Today her BMI is 42.2. She is 101 pounds overweight. PAST MEDICAL HISTORY: 1. Morbid obesity due to excess calories 2. Body mass index of 49.2, initial 3. Osteoarthritis of the knees. 4. Hypertensive heart disease. 5. Gastroesophageal reflux disease 6. Hyperlipidemia 7. Anxiety disorder 8. Depressive disorder 9. Obstructive sleep apnea 10. Diabetes type 2, insulin dependent 11. Diabetic neuropathy 12. Psoriasis PAST SURGICAL HISTORY: 1. Tonsillectomy 2. Adenoidectomy 3. Cholecystectomy 4. Removal of lipoma HOME MEDICATIONS: ALLERGIES: Home Medications Medication Instructions Recorded Confirmed Atorvastatin [Lipitor] 10 mg PO HS 09/08/15 06/12/18 Lisinopril-Hctz 20-12.5 mg 1 tab PO QAM 09/08/15 06/12/18 [Zestoretic 20-12.5] PARoxetine HCL 40 mg PO HS 09/08/15 06/12/18 buPROPion HCL [Wellbutrin SR] 200 mg PO BID 09/08/15 06/12/18 sitaGLIPtin PHOS/metFORMIN HCL 1 each PO BID 09/08/15 06/12/18 [Janumet 50-1,000 mg Tablet] ALPRAZolam [Xanax] 0.25 mg PO DAILY PRN 10/07/15 06/12/18 Multivitamins, Thera [Multivitamin] 1 tab PO DAILY 10/07/15 06/12/18 Insuln Asp Prt/Insulin Aspart 82 units SQ AC-BRKFST 12/15/15 06/12/18 [NovoLOG MIX 70-30 VIAL] Insuln Asp Prt/Insulin Aspart 86 units SQ AC-SUPPER 12/15/15 06/12/18 [NovoLOG MIX 70-30 VIAL] Clobetasol Propionate [Temovate 1 applic TOPICAL BID 03/21/18 06/12/18 0.05% Cream] Dapagliflozin Propanediol [Farxiga] 5 mg PO DAILY 03/21/18 06/12/18 Glimepiride [Amaryl] 4 mg PO DAILY 03/21/18 06/12/18 Phentermine HCl [Adipex-P] 37.5 mg PO DAILY 03/21/18 06/12/18 Triamcinolone 0.1% Cream [Kenalog 1 applicatio TOPICAL TID PRN 03/21/18 06/12/18 0.1% Cream] Semaglutide [Ozempic] 0.5 mg SQ TH 05/09/18 06/12/18 Gabapentin [Neurontin] 300 mg PO TID 05/13/18 06/12/18 Omeprazole [PriLOSEC] 10 mg PO DAILY 06/12/18 06/12/18 Previous Rx's Medication Instructions Recorded Omeprazole 40 mg PO DAILY #14 capsule. 05/13/18 Allergies Allergy/AdvReac Type Severity Reaction Status Date / Time environmental AdvReac Unknown Uncoded 06/12/18 14:45 SOCIAL HISTORY: Past tobacco use. FAMILY HISTORY: No family history of ulcerative colitis disease or Crohn's disease. Family history of morbid obesity. No lupus in the family. No reports of stomach or esophageal cancer. DVTs in grandmother. REVIEW OF ORGAN SYSTEMS: CONSTITUTIONAL: At height of 5 feet 4 inches, her ideal body weight is 154 pounds. Her highest weight was 286 pounds. Her body mass index highest was 49.2. HEENT: Denies any active troubles with vision or hearing. No troubles with swallowing. ENDOCRINE: Has diabetes. No hypothyroidism. CARDIOVASCULAR: No reports of palpitations or heart attacks or chest pain. RESPIRATORY: Has daytime somnolence. Has asthma. GI: Denies any bright red blood per rectum. No diarrhea. Has gastroesophageal reflux disease. MUSCULOSKELETAL: Has lower back pain and joint pain. Has osteoarthritis of the knees. NEURO: No headaches. No seizure disorders. Has neuropathy PSYCH: Has depression. No suicidal ideation. Has anxiety. RHEUMATOLOGIC: No lupus. No rheumatoid arthritis. HEMATOLOGIC: Denies any abnormal bleeding or bruising. No personal history of DVTs. SKIN: Has rash and panniculitis. No skin cancer. PHYSICAL EXAM: VITAL SIGNS: Height 5 foot 4 inches, weight 245 pounds. BMI 42.2 GENERAL: Well-developed in no acute distress. HEENT: No scleral icterus. Extraocular movements grossly intact. Hears conversational speech. No nasal drainage. NECK: Supple without lymphadenopathy. CHEST: Nonlabored respirations with equal bilateral excursions. CARDIOVASCULAR: Regular rate and regular rhythm. Distal 2+ pulses. ABDOMEN: Obese, soft, nontender, nondistended. Has panniculitis. MUSCULOSKELETAL: No clubbing, cyanosis. Gross strength 5/5 distal lower extremities. NEURO: No focal or lateralizing signs. Cranial nerves 2 through 12 grossly within normal limits. PSYCH: Appropriate affect. Alert and oriented to person, place and time. SKIN: Good skin turgor. Well perfused. ASSESSMENT: 1. Morbid obesity due to excess calories 2. Body mass index of 49.2, initial 3. Osteoarthritis of the knees. 4. Hypertensive heart disease. 5. Gastroesophageal reflux disease 6. Hyperlipidemia 7. Anxiety disorder 8. Depressive disorder 9. Obstructive sleep apnea 10. Diabetes type 2, insulin dependent 11. Diabetic neuropathy 12. Psoriasis 13. Hiatal hernia PLAN: 1. She wants the gastric bypass. Benefits and risk of the procedure including diabetic control, improvement of gastroesophageal reflux disease, and increased complications over 11% per [facility] calculator described. Bariatric options between a sleeve, band and a Ham-en-Y gastric bypass were reviewed in detail. The patient elected for a gastric bypass. Robotic assisted approach described. 2. The [place] [facility] Data was also reviewed with benefits and risks as described. 3. An 8 page second-generation bariatric consent form was reviewed in detail including potential of bleeding, infection, leaks, adequate weight loss, nutritional deficiencies which the patient demonstrated understanding of the risks. 4. A 2 week high-protein low caloric 800 kcal diet described to address hepatomegaly. 5. Preoperative labs including complete metabolic panel and CBC with type and screen recommended. 6. DVT prophylaxis per [place] [facility]. 7. Antibiotic prophylaxis. 8. Inpatient hospitalization anticipated for more than 2 nights. 9. All questions and concerns were addressed with the patient. Past Medical History Past Medical History: Diabetes Mellitus, GERD/Reflux, Hyperlipidemia, Hypertension, Neurologic Disorder, Sleep Apnea/CPAP/BIPAP Additional Past Medical History / Comment(s): Type 2 DM, diabetic neuropathy to bilateral feet, psoriasis, has cpap History of Any Multi-Drug Resistant Organisms: None Reported Past Surgical History: Adenoidectomy, Cholecystectomy, Tonsillectomy Additional Past Surgical History / Comment(s): lypoma removed from right hip in 2016 Past Anesthesia/Blood Transfusion Reactions: Motion Sickness, Postoperative Nausea & Vomiting (PONV) Additional Past Anesthesia/Blood Transfusion Reaction / Comment(s): No blood transfusion to date Smoking Status: Former smoker - Past Family History Mother Family Medical History: AICD/Pacemaker, Hypertension Additional Family Medical History / Comment(s): maternal hx of diabetes Father History Unknown: Yes Family Medical History: No Reported History Medications and Allergies Home Medications Medication Instructions Recorded Confirmed Type buPROPion HCL [Wellbutrin SR] 200 mg PO BID 09/08/15 09/13/18 History Insuln Asp Prt/Insulin Aspart 82 units SQ DIRECTED PRN 12/15/15 09/13/18 History [NovoLOG MIX 70-30 VIAL] Insuln Asp Prt/Insulin Aspart 86 units SQ DIRECTED PRN 12/15/15 09/13/18 History [NovoLOG MIX 70-30 VIAL] Clobetasol Propionate [Temovate 1 applic TOPICAL BID PRN 03/21/18 09/13/18 History 0.05% Cream] Triamcinolone 0.1% Cream [Kenalog 1 applicatio TOPICAL TID PRN 03/21/18 09/13/18 History 0.1% Cream] Gabapentin [Neurontin] 300 mg PO TID 05/13/18 09/13/18 History Omeprazole 10 mg PO DAILY 08/23/18 09/13/18 History Lisinopril-Hctz 10-12.5 mg 1 tab PO DAILY 09/13/18 09/13/18 History [Zestoretic 10-12.5] sitaGLIPtin PHOS/metFORMIN HCL 1 each PO BID 09/13/18 09/13/18 History [Janumet 50-1,000 mg Tablet] Allergies Allergy/AdvReac Type Severity Reaction Status Date / Time environmental AdvReac Mild Unknown Uncoded 09/13/18 13:00
[~2018-09-23 08:00] MED LIST changes: +CHLORHEXIDINE GLUCONATE 15 ML CUP MUCOUS MEM ONE; +DEXAMETHASONE SOD PHOSPHATE 10 MG/ML 1 ML VIAL IV ONE; +ENOXAPARIN 40 MG/0.4 ML SYRINGE SQ STA; +HYDROmorphone 0.5 MG/0.5 ML SYRINGE IVP PRN; -LACTATED RINGERS 1,000 ML IV SCH; +LIDOCAINE 1% 20 ML VIAL (10MG/ML) FOR IV START INTRADERMA PRN; +ONDANSETRON 4 MG/2 ML VIAL IVP ONE; +PANTOPRAZOLE 40 MG/10 ML VIAL IV STA; +SCOPOLAMINE 1.5MG/72HR PATCH TRANSDERM ONE
[2018-09-23] MEDS: LACTATED RINGERS 1,000 ML IV SCH (11:54)
[2018-09-23 12:04] LABS: Glucose,Whole Blood 142 mg/dL (75-99)
[2018-09-23] MEDS ORDERED: .MORPHINE SULFATE (INJ) 10 MG/ML SYRINGE ONE (12:17)
[2018-09-23] MEDS ORDERED: PROPOFOL 10 MG/ML 20 ML VIAL IV ONE (12:17)
[2018-09-23] MEDS ORDERED: NEOSTIGMINE 1 MG/ML 10 ML VIAL ONE (12:17)
[2018-09-23] MEDS ORDERED: MIDAZOLAM 2 MG/2 ML VIAL ONE (12:17)
[2018-09-23] MEDS ORDERED: GLYCOPYRROLATE 0.2 MG/ML 2 ML VIAL ONE (12:17)
[2018-09-23] MEDS ORDERED: PHENYLEPHRINE-0.9% NACL SYG 1 MG/10 ML SYRINGE ONE (12:17)
[2018-09-23] MEDS ORDERED: fentaNYL (PF) 50 MCG/ML 2 ML AMP ONE (12:17)
[2018-09-23] MEDS ORDERED: ROCURONIUM BROMIDE 10 MG/ML 10 ML VIAL IV ONE (12:17)
[2018-09-23] MEDS ORDERED: LIDOCAINE 1% INJ 10MG/ML (20 ML MDV) ONE (12:17)
[2018-09-23] MEDS ORDERED: KETOROLAC 30 MG/ML 1 ML VIAL ONE (12:17)
[2018-09-23] MEDS ORDERED: BUPIVACAIN-EPI 0.25%-1:200,000 30 ML VIAL SQ ONE (12:50)
[2018-09-23] MEDS ORDERED: LACTATED RINGERS 1,000 ML IV ONE ×2 (13:27→14:39)
--- NOTE | 2018-09-23 15:06 | P.OP ---
Date of Procedure: 09/23/18 Description of Procedure: SURGEON: ERIKA CODY MD PREOPERATIVE DIAGNOSES: 1. Morbid obesity due to excess calories 2. Body mass index of 49.2, initial 3. Osteoarthritis of the knees. 4. Hypertensive heart disease. 5. Gastroesophageal reflux disease 6. Hyperlipidemia 7. Anxiety disorder 8. Depressive disorder 9. Obstructive sleep apnea 10. Diabetes type 2, insulin dependent 11. Diabetic neuropathy 12. Psoriasis 13. Hiatal hernia POSTOPERATIVE DIAGNOSES: 1. Morbid obesity due to excess calories 2. Body mass index of 49.2, initial 3. Osteoarthritis of the knees. 4. Hypertensive heart disease. 5. Gastroesophageal reflux disease 6. Hyperlipidemia 7. Anxiety disorder 8. Depressive disorder 9. Obstructive sleep apnea 10. Diabetes type 2, insulin dependent 11. Diabetic neuropathy 12. Psoriasis 13. Hiatal hernia 14. Peritoneal adhesions left upper quadrant greater omentum to left lateral abdominal wall OPERATION: 1. Robotic assisted da Yosef Xi laparoscopic Jacklyn-en-Y gastric bypass, 100 cm antecolic antegastric Jacklyn limb, with 21 mm EEA. 2. Robotic assisted da Yosef Xi laparoscopic lysis of adhesions 30 minutes 3. Intraoperative esophagogastrojejunoscopy. ANESTHESIA: GETA and local ESTIMATED BLOOD LOSS: 10 mL SPECIMENS REMOVED: None. COMPLICATIONS: NONE. Operative Findings: 1. Biliopancreatic limb 60 cm 2. Bypass performed using 100 cm jacklyn limb secondary to avoid increased tension at 150 cm. 3. Watt defect and jejunojejunostomy defect obliterated by moderate intra- abdominal fat. 4. Leak test negative with gastrojejunal anastomosis patent and hemostatic. 5. Reinforcement sutures were placed along the gastrojejunal anastomosis at 9:00, 12:00 and 3:00 6. Hepatomegaly 7. No large hiatus hernia 8. 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 She is looking into the gastric bypass. She reports moderate gastroesophageal reflux disease and has diabetes type 2. At height of 5 feet 4 inches, her ideal body weight is 154 pounds. Today, she comes in 245 pounds from 250 pounds, 4 months ago. She has lost 5 pounds in 4 months. Her highest weight was 286 pounds. Her body mass index highest was 49.2. Today her BMI is 42.2. She is 101 pounds overweight. A second-generation bariatric consent form was described in detail including the possibility of protein malnutrition, leaks, gastrojejunal stricture, venous thrombosis, need for further surgery for which she demonstrated understanding. Benefits and risks of the procedure were described at length. Informed consent was obtained. DESCRIPTION: The patient was brought into the operating room theater. She was placed supine. She had received Lovenox subcutaneously for DVT prophylaxis. Additionally she Peridex oral lazarus ution as an oral decontaminant was placed per anesthesia. After general induction, the abdomen was prepped and draped in standard sterile fashion. Ioban draping was placed along the abdomen. A robotic Attivio Xi system was prepped and primed. The xiphoid to umbilicus was measured of 20 cm. Incisions were proposed at 15 cm from the xiphoid. Proposed port sites were marked with indelible marker along the anterior axillary line bilaterally, mid clavicular line bilaterally with each port marked 10 cm from each other. The robotic stapler port was marked for the right midclavicular line including along the left midclavicular line. A 5 mm 0 degrees laparoscopic trocar entry was performed along the left upper quadrant. The abdomen was insufflated to 15 mmHg pressure, which she tolerated well. Diagnostic laparoscopy demonstrated no injury to bowel, viscera, or mesentery. The liver was smooth and large consistent with hepatomegaly. No large hiatus hernia was identified after liver elevation. An 8 mm camera port was placed left lateral to the umbilicus at the epigastrium, 15 cm distal to the xiphoid. Next, 12-mm robot stapler port was placed along the right mid abdomen. An 12 mm port was exchanged along the left upper quadrant. An 8 mm port was placed on the left lateral abdominal wall under direct visualization. Please note that the ports were placed 18 to 20 cm away from the target anatomy of the stomach. Care was taken to check that each robotic arm was safely away from collision with the bed or the patient. At the epigastrium, a medium sized Lizeth liver retractor was placed under direct visualization with the Iron Fiber Worker placed under the right shoulder of the patient. The patient was repositioned in reverse Trendelenburg position at 16-degrees after lowering the bed. The robot was docked over the patient. Using grasper for arm 3, a grasper for arm 1, including vessel sealer for arm 4, the robotic system was docked and primed as described. Instruments were interchanged by the assistant loan processor including endoscissors, the needle driver examiner, and stapler. I had sat at the console. Next, the transverse mesocolon was reflected into the upper abdomen after d ividing the mesentery and preparing for the jejunojejunostomy portion of the case. The ligament of Treitz was identified and measured 60 cm antegrade and marked using 3-0 Silk. The jejunum was divided at the 60 cm point using 60-mm blue loads above the suture measurement. The biliopancreatic limb was held in place. The Jacklyn limb was measured 100 cm in an antegrade fashion to avoid tension along the proposed gastrojejunal anastomosis. At 100 cm along the anti-mesenteric border of the Jacklyn limb, a jejunojejunostomy was proposed whereby enterotomies were created along the biliopancreatic limb including the Jacklyn limb using a Bovie cautery. A stay suture of 3-0 Slik was placed to align and create the anastomosis. The enterotomies along the anti-mesenteric borders were created followed by unidirectional fire from the patient's right side using 60 mm blue loads Smart technology robotic stapler. The jejunojejunostomy was found to be hemostatic. The enterotomy was closed after horizontal mattress stitch of 3-0 silk used to elevate the enterotomy followed by closure with the robotic stapler blue load. The jejunal limb was temporarily tacked along the left upper quadrant. Attention was now brought to the creation of the gastrojejunostomy. Along the lesser curvature of the stomach between the second and third veins, dissection was made along the retrogastric space to allow first firing of the robotic staple. Green and blue staple loads of 60 mm staplers were used to divide the stomach to create the gastric pouch. The patient was then prepared for placement of a Orvil. A 21-mm Orvil was selected for placement by the nurse logging truck driver. The Orvil tubing was placed anterior to the staple line of the gastric pouch and brought out through the left inferior lateral port. I re-scrubbed into the case. The robotic arms were temporarily undocked. The Orvil was then carefully and successfully navigated with the help of the nurse logging truck driver into the gastric pouch. The sutures were identified and divided. The tubing was from the 21 mm anvil. As the Orvil had been placed, the blind jejunal limb was brought proximally into the upper abdomen. No torsion was found upon the Jacklyn limb. No tension was identified as the limb was brought along the upper abdomen. The blind jejunal limb was previously opened using endo-scissors with cautery. The 21-mm EEA stapler was brought through the left anterior lateral port site from the left side. The EEA stapler was brought through the open jejunal limb and its needle was deployed at the antimesenteric border where the anvil were mated for approximately 1 minute upon firing. The stapler was removed after irrigating the shaft of the instrument with warm normal saline. Donuts were found to be intact and on both sides. The Attivio Xi robot arms were then re-docked. I sat at the console. The open jejunal limb defect was closed using 60 mm blue white loads after releasing any tension from the blind jejunal limb. Care was taken to avoid any long blind limb to avoid candycane syndrome. Reinforcement sutures were placed along the gastrojejunal anastomosis and placed along the 9:00, 12:00 and 3 o'clock position using 3-0 Vicryl. The Montez and jejunojejunostomy mesenteric defects were obliterated by her intra-abdominal fat. I then went to the head of the bed to perform the esophagogastrojejunoscopy and a leak test. An Olympus gastroscope was passed along the posterior oropharynx which was unremarkable for any injury to the vocal cords. The scope was passed down to the proximal portion of the pouch, whereby no active bleeding was encountered. Excellent visualization of the gastrojejunostomy anastomosis, including the Jacklyn limb was encountered with endoscopic image obtained. The anastomosis was found to be patent. The gastrointestinal tract was desufflated. No evidence of intraoperative leak was encountered as the gastric pouch and anastomosis were submerged under normal saline solution. The robot was then undocked. I then went back to the bedside of the patient, whereby with coordinated effort of the assistant loan processor, irrigation was aspirated from the upper abdominal cavity. Tisseel was placed circumferentially over the anastomosis of the gastrojejunostomy. The fascial defect of the EEA stapler was closed using Alli Rivero and 0 Vicryl. All instruments and pneumoperitoneum were evacuated from the abdominal cavity. The port correlating with the EEA stapler device was cleansed with normal saline solution and hydrogen peroxide. The rest of incisions were reapproximated using 4-0 Monocryl in an interrupted subcuticular fashion. Local anesthetic was infiltrated along the skin for postop analgesia. Liquid glue was applied to the skin. OptiFoam dressing was placed along the EEA stapler site. At the end of the procedure, needle, sponge and instrument count had been verified correct by the surgical assistant certified. He had tolerated the procedure well and was extubated and taken to the postanesthesia unit in stable condition. Intraoperative findings were described to the patient's family who were very pleased with the level of care. Total console time 80 minutes
[2018-09-23] MEDS ORDERED: HYOSCYAMINE ORAL DROPS 1.875 MG/15 ML BOTTLE PO PRN (15:14)
[2018-09-23] MEDS ORDERED: NALOXONE 0.4 MG/ML 1 ML VIAL IV PRN (15:14)
[2018-09-23] MEDS ORDERED: diphenhydrAMINE 50 MG/ML 1 ML VIAL IVP PRN (15:14)
[2018-09-23] MEDS ORDERED: HYDROcodone/APAP 15 ML SOLUTION PO PRN (15:14)
[2018-09-23] MEDS ORDERED: DEXAMETHASONE SOD PHOSPHATE 10 MG/ML 1 ML VIAL IV PRN (15:19)
[2018-09-23 15:26] LABS: Glucose,Whole Blood 165 mg/dL (75-99)
[2018-09-23] MEDS: ALBUTEROL NEBULIZED 2.5 MG/3 ML INHALATION SCH ×2 (15:59→20:36)
[2018-09-23] MEDS: SIMETHICONE 40 MG/0.6 ML DROPS 2,000 MG/30 ML BOTTLE PO SCH ×2 (17:09→23:39)
[2018-09-23] MEDS: ONDANSETRON 4 MG/2 ML VIAL IVP SCH ×2 (17:09→23:40)
[2018-09-23] MEDS: HYDROmorphone 1 MG/ML 1 ML SYRINGE IVP PRN ×2 (17:10→23:43)
[2018-09-23 17:15] LABS: Glucose,Whole Blood 178 mg/dL (75-99)
[2018-09-23] MEDS: INSULIN ASPART (NovoLOG) 100 UNIT/ML VIAL SQ SCH ×2 (17:43→23:52)
[2018-09-23 17:54] VITALS: BMI 39.9
[2018-09-23] MEDS: 0.9% NACL WITH KCL 20 MEQ/L 1,000 ML IV SCH ×2 (19:17→20:08)
[2018-09-23 21:47] VITALS: RESP 17
[2018-09-23 23:46] LABS: Glucose,Whole Blood 160 mg/dL (75-99)
[2018-09-24] MEDS: LACTATED RINGERS 1,000 ML IV SCH (00:40)
[2018-09-24 06:03] LABS: Glucose,Whole Blood 143 mg/dL (75-99)
[2018-09-24] MEDS: 0.9% NACL WITH KCL 20 MEQ/L 1,000 ML IV SCH (06:05)
[2018-09-24] MEDS: INSULIN ASPART (NovoLOG) 100 UNIT/ML VIAL SQ SCH (06:06)
[2018-09-24] MEDS: SIMETHICONE 40 MG/0.6 ML DROPS 2,000 MG/30 ML BOTTLE PO SCH ×2 (06:06→11:44)
[2018-09-24] MEDS: ONDANSETRON 4 MG/2 ML VIAL IVP SCH ×2 (06:06→11:44)
[2018-09-24] MEDS: HYDROmorphone 1 MG/ML 1 ML SYRINGE IVP PRN (06:11)
[2018-09-24] MEDS: ALBUTEROL NEBULIZED 2.5 MG/3 ML INHALATION SCH ×2 (07:13→11:00)
[2018-09-24 07:46] LABS: Basophils % (A) 0 %; Eosinophils % (A) 0 %; HGB 11.7 gm/dL (11.4-16.0); Lymphocytes # (A) 1.1 k/uL (1.0-4.8); Lymphocytes % (A) 10 %; MCH 29.1 pg (25.0-35.0); MCHC 32.4 g/dL (31.0-37.0); MCV 89.9 fL (80.0-100.0); Mean Platelet Volume 7.8; Monocytes # (A) 0.5 k/uL (0-1.0); Monocytes % (A) 4 %; Neutrophils # (A) 9.3 k/uL (1.3-7.7); Neutrophils % (A) 84 %; Platelet Count 220 k/uL (150-450); RBC 4.01 m/uL (3.80-5.40); WBC 11.1 k/uL (3.8-10.6)
[2018-09-24 07:51] LABS: African American GFR (CKD) >90 (>60 ml/min/1.73 sqM); Anion Gap 8 mmol/L; Blood Urea Nitrogen 13 mg/dL (7-17); Calcium 8.2 mg/dL (8.4-10.2); Carbon Dioxide 23 mmol/L (22-30); Chloride 106 mmol/L (98-107); Magnesium 1.5 mg/dL (1.6-2.3); Non-African American GFR(CKD) >90 (>60 ml/min/1.73 sqM); Phosphorus 2.7 mg/dL (2.5-4.5); Potassium 4.6 mmol/L (3.5-5.1); Sodium 137 mmol/L (137-145)
[2018-09-24] MEDS ORDERED: 0.9% NACL WITH KCL 20 MEQ/L 1,000 ML IV SCH (08:00)
[2018-09-24] MEDS: MAGNESIUM SULFATE-D5W PMX 1 GM in DEXTROSE/WATER 1 100ML.BAG IVPB SCH ×3 (08:29→11:21)
[2018-09-24] MEDS ORDERED: ENOXAPARIN 40 MG/0.4 ML SYRINGE SQ SCH (09:00)
[2018-09-24] MEDS ORDERED: PANTOPRAZOLE 40 MG/10 ML VIAL IV SCH (09:00)
[2018-09-24 11:45] LABS: Glucose,Whole Blood 236 mg/dL (75-99)
--- NOTE | 2018-09-24 12:21 | P.DS ---
Providers Date of admission: 09/23/18 11:27 Expected date of discharge: 09/24/18 Attending physician: Stefanie Isabel Primary care physician: Ana Cyndi [facility] Course: 43-year-old female who underwent robotic-assisted da Yosef Xi laparoscopic Ham-en-Y gastric bypass and lysis of adhesions with Dr. Isabel on 09/23/2018. Patient is doing well postoperatively without any immediate complications. She is tolerating clear liquid diet. Pain is controlled on oral medications. Vital signs have been stable. She is stable for discharge home today. Please see EMR for further hospital course details. Discharge diagnosis 1. Morbid obesity due to excess calories 2. Body mass index of 49.2, initial 3. Osteoarthritis of the knees. 4. Hypertensive heart disease. 5. Gastroesophageal reflux disease 6. Hyperlipidemia 7. Anxiety disorder 8. Depressive disorder 9. Obstructive sleep apnea 10. Diabetes type 2, insulin dependent 11. Diabetic neuropathy 12. Psoriasis 13. Hiatal hernia 14. Peritoneal adhesions left upper quadrant greater omentum to left lateral abdominal wall Nurse practitioner note has been reviewed by physician. Signing provider agrees with the documented findings, assessment, and plan of care. Patient Condition at Discharge: Stable Plan - Discharge Summary Discharge Rx Participant: Yes New Discharge Prescriptions: New Bisacodyl [Dulcolax] 5 mg PO DAILY PRN #10 tablet.dr PRN Reason: Constipation Simethicone 40 mg/0.6 ml Drops [Mylicon Drops] 40 mg PO PCHS PRN #30 ml PRN Reason: gas Omeprazole 40 mg PO DAILY #30 cap Acetaminophen Oral Susp [Tylenol Oral Susp] 650 mg PO Q4H PRN #300 ml PRN Reason: Pain Ondansetron Odt [Zofran Odt] 4 mg PO Q8HR PRN #9 tab PRN Reason: Nausea INSULIN ASPART (NovoLOG) [NovoLOG (formulary)] See Protocol SQ ACHS #2 vial Continue buPROPion HCL [Wellbutrin SR] 200 mg PO BID Triamcinolone 0.1% Cream [Kenalog 0.1% Cream] 1 applic TOPICAL TID PRN PRN Reason: Rash Clobetasol Propionate [Temovate 0.05% Cream] 1 applic TOPICAL BID PRN PRN Reason: psoriasis Gabapentin [Neurontin] 300 mg PO TID Discontinued Insuln Asp Prt/Insulin Aspart [NovoLOG MIX 70-30 VIAL] 82 units SQ AC-BRKFST Insuln Asp Prt/Insulin Aspart [NovoLOG MIX 70-30 VIAL] 86 units SQ AC-SUPPER sitaGLIPtin PHOS/metFORMIN HCL [Janumet 50-1,000 mg Tablet] 1 tab PO BID Lisinopril-Hctz 10-12.5 mg [Zestoretic 10-12.5] 1 tab PO DAILY Omeprazole [PriLOSEC] 10 mg PO DAILY Discharge Medication List buPROPion HCL [Wellbutrin SR] 200 mg PO BID 09/08/15 [History] Clobetasol Propionate [Temovate 0.05% Cream] 1 applic TOPICAL BID PRN 03/21/18 [History] Triamcinolone 0.1% Cream [Kenalog 0.1% Cream] 1 applic TOPICAL TID PRN 03/21/18 [History] Gabapentin [Neurontin] 300 mg PO TID 05/13/18 [History] Acetaminophen Oral Susp [Tylenol Oral Susp] 650 mg PO Q4H PRN #300 ml 09/24/18 [Rx] Bisacodyl [Dulcolax] 5 mg PO DAILY PRN #10 tablet. 09/24/18 [Rx] INSULIN ASPART (NovoLOG) [NovoLOG (formulary)] See Protocol SQ ACHS #2 vial 09/24/18 [Rx] Omeprazole 40 mg PO DAILY #30 cap 09/24/18 [Rx] Ondansetron Odt [Zofran Odt] 4 mg PO Q8HR PRN #9 tab 09/24/18 [Rx] Simethicone 40 mg/0.6 ml Drops [Mylicon Drops] 40 mg PO PCHS PRN #30 ml 09/24/18 [Rx] Follow up Appointment(s)/Referral(s): [facility],. [NON-STAFF] - 09/27/18 12:00 pm Patient Instructions/Handouts: *Surgery [facility] - Scopalamine Patch Instructions Activity/Diet/Wound Care/Special Instructions: You may shower. No soaking or tub baths No lifting over 4 lbs Light activity Liquid diet per client services associate instructions
[2018-09-24] MEDS ORDERED: INSULIN ASPART (NovoLOG) 100 UNIT/ML VIAL SQ SCH (12:30)
[2018-09-24 15:11] VITALS: BP 107/67; PULSE 85; TEMP 97.6
[2018-09-24] MEDS ORDERED: SCOPOLAMINE 1.5MG/72HR PATCH TRANSDERM SCH (15:30)
[2018-09-25] MEDS ORDERED: BISACODYL 5 MG TABLET.DR PO PRN (08:00)
== END 2018-09-24 16:11 | disposition home or self-care (01) | DRG 621 ==
LOC: 2ORMAIN 11:27 → 4SSUR 15:05
PROVIDERS: ADMIT Surgery Plastic and Reconstructive Surgery; ATTEND Surgery Plastic and Reconstructive Surgery
PROC: 0DJ08ZZ Inspection of Upper Intestinal Tract, Via Natural or Artificial Opening Endoscopic (ICD-10-PCS; 2018-09-23)
PROC: 0D164ZA Bypass Stomach to Jejunum, Percutaneous Endoscopic Approach (ICD-10-PCS; principal; 2018-09-23 12:25)
DX: E66.01 Morbid (severe) obesity due to excess calories (principal); Z68.41 Body mass index [BMI] 40.0-44.9, adult; E11.40 Type 2 diabetes mellitus with diabetic neuropathy, unspecified; R16.0 Hepatomegaly, not elsewhere classified; I11.9 Hypertensive heart disease without heart failure; E78.5 Hyperlipidemia, unspecified; F32.9 Major depressive disorder, single episode, unspecified; F41.9 Anxiety disorder, unspecified; G47.33 Obstructive sleep apnea (adult) (pediatric); K21.9 Gastro-esophageal reflux disease without esophagitis; K44.9 Diaphragmatic hernia without obstruction or gangrene; L40.9 Psoriasis, unspecified; M17.0 Bilateral primary osteoarthritis of knee; M54.5 Low back pain; Z79.4 Long term (current) use of insulin; Z79.899 Other long term (current) drug therapy; Z87.891 Personal history of nicotine dependence; Z90.49 Acquired absence of other specified parts of digestive tract; Z82.49 Family history of ischemic heart disease and other diseases of the circulatory system; Z83.3 Family history of diabetes mellitus
CPT/HCPCS: 80051; 81025; 82310; 82565; 83735; 84100; 84520; 85025; 86850; 86900; 86901; 94640; 94760; 94762

== ENCOUNTER → 2018-09-27 | Outpatient (CLI) | payer BC ==
[2018-09-27 09:52] VITALS: BP 121/87; PULSE 88; RESP 16; TEMP 98.9; BMI 40.6
--- NOTE | 2018-09-27 20:14 | P.PN ---
Subjective Progress Note Date: 09/27/18 DATE OF SERVICE: 09/27/2018 CHIEF COMPLAINT: Morbid obesity HISTORY OF PRESENT ILLNESS: Mariama Aquino is a 43-year-old female is status post gastric bypass 09/23/18. She is POD 4. She is clinically doing well. No reports of infection. She is tolerated liquids. No reports of fevers or chills. Her blood sugar is on sliding scale between 140-150 and excellent. At height of 5 feet 4 inches, her ideal body weight is 154 pounds. Today, she comes in 237 pounds from 250 pounds, 3 months ago. She has lost 14 pounds in 3 months. Her highest weight was 286 pounds. Her body mass index highest was 49.2. Today her BMI is 40.7. Lifetime weight loss is 49 pounds. Percent excess weight loss is 35%. PHYSICAL EXAM: VITAL SIGNS: Height 5 foot 4 inches, weight 237 pounds. BMI 40.7 Vital Signs Temp 98.9 F 09/27/18 10:00 Pulse 88 09/27/18 10:00 Resp 16 09/27/18 10:00 BP 121/87 09/27/18 10:00 Pulse Ox GENERAL: Well-developed in no acute distress. HEENT: No scleral icterus. Extraocular movements grossly intact. Hears conversational speech. No nasal drainage. NECK: Supple without lymphadenopathy. CHEST: Nonlabored respirations with equal bilateral excursions. CARDIOVASCULAR: Regular rate and regular rhythm. Distal 2+ pulses. ABDOMEN: Obese, soft, nontender, nondistended. Has panniculitis. MUSCULOSKELETAL: No clubbing, cyanosis. Gross strength 5/5 distal lower extremities. NEURO: No focal or lateralizing signs. Cranial nerves 2 through 12 grossly within normal limits. PSYCH: Appropriate affect. Alert and oriented to person, place and time. SKIN: Good skin turgor. Well perfused. ASSESSMENT: 1. Morbid obesity due to excess calories 2. Body mass index of 49.2 to 40.7 3. Osteoarthritis of the knees. 4. Hypertensive heart disease. 5. Gastroesophageal reflux disease 6. Hyperlipidemia 7. Anxiety disorder 8. Depressive disorder 9. Obstructive sleep apnea 10. Diabetes type 2, insulin dependent 11. Diabetic neuropathy 12. Psoriasis 13. Hiatal hernia 14. Status post gastric bypass PLAN: 1. Follow-up in 2 weeks. Objective - Vital Signs Vital signs: Vital Signs Temp 98.9 F 09/27/18 10:00 Pulse 88 09/27/18 10:00 Resp 16 09/27/18 10:00 BP 121/87 09/27/18 10:00 Pulse Ox Intake & Output 09/27/18 09/27/18 09/28/18 06:59 18:59 06:59 Weight 107.501 kg
== END | disposition home or self-care (01) ==
LOC: BARWHC3 09:39
PROVIDERS: ATTEND Surgery Plastic and Reconstructive Surgery
DX: Z48.815 Encounter for surgical aftercare following surgery on the digestive system (principal); E66.01 Morbid (severe) obesity due to excess calories; M17.0 Bilateral primary osteoarthritis of knee; I11.9 Hypertensive heart disease without heart failure; K21.9 Gastro-esophageal reflux disease without esophagitis; E78.5 Hyperlipidemia, unspecified; F41.8 Other specified anxiety disorders; G47.33 Obstructive sleep apnea (adult) (pediatric); E11.42 Type 2 diabetes mellitus with diabetic polyneuropathy; Z79.4 Long term (current) use of insulin; L40.9 Psoriasis, unspecified; K44.9 Diaphragmatic hernia without obstruction or gangrene; Z98.84 Bariatric surgery status; Z68.41 Body mass index [BMI] 40.0-44.9, adult
CPT/HCPCS: 99211

== ENCOUNTER → 2018-10-09 | Outpatient (CLI) | payer BC ==
[2018-10-09 16:10] VITALS: BP 128/73; PULSE 74; TEMP 98.1; BMI 38.9
--- NOTE | 2018-10-09 16:44 | P.PN ---
Subjective Progress Note Date: 10/09/18 HPI: She reports no pain. No infection. She is on protein shakes and her blood sugar is between 60 to 75 grams. She has lost 20 pounds in 1 month. She has not taken her Omeprazole due to pharmacy. No more insulin. ABDOMEN: No infection ASSESSMENT: 1. Morbid obesity PLAN: 1. Omeprazole 2. Follow 1 month in November. Objective - Vital Signs Vital signs: Vital Signs Temp 98.1 F 10/09/18 16:07 Pulse 74 10/09/18 16:07 Resp BP 128/73 10/09/18 16:07 Pulse Ox Intake & Output 10/08/18 10/09/18 10/09/18 18:59 06:59 18:59 Weight 102.965 kg
== END ==
LOC: BARWHC3 14:54
PROVIDERS: ATTEND Surgery Plastic and Reconstructive Surgery
DX: E66.01 Morbid (severe) obesity due to excess calories (principal); Z68.39 Body mass index [BMI] 39.0-39.9, adult; Z79.899 Other long term (current) drug therapy
CPT/HCPCS: 97803; 99211

== ENCOUNTER → 2018-10-23 | Outpatient (CLI) | payer BC ==
[2018-10-23 16:00] VITALS: BP 129/66; PULSE 69; TEMP 98.4; BMI 37.2
--- NOTE | 2018-10-23 16:07 | P.PN ---
Subjective Progress Note Date: 10/23/18 DATE OF SERVICE: 10/23/2018 CHIEF COMPLAINT: Morbid obesity HISTORY OF PRESENT ILLNESS: Mariama Aquino is a 43-year-old female is status post gastric bypass 09/23/18. She is 1 month out. She reports feeling better. She reports right knee pain. No reports of worsening lower back pain. She wants to see her chiropactor. Her protein intake is 70 g to 100 g. She has lost 30 pounds in 1 month. No heartburn. She had 1 episode of trouble with can chicken. She is no longer requiring insulin. She is 1 month from her bypass. She has more energy. At height of 5 feet 4 inches, her ideal body weight is 154 pounds. Today, she comes in 217 pounds from 227 pounds, 2 weeks ago. She has lost 10 pounds in 2 w eeks. Her highest weight was 286 pounds. Her body mass index highest was 49.2. Today her BMI is 37.2. Lifetime weight loss is 69 pounds. Percent excess weight loss is 49%. PHYSICAL EXAM: VITAL SIGNS: Height 5 foot 4 inches, weight 217 pounds. BMI 37.2 Vital Signs Temp 98.4 F 10/23/18 15:34 Pulse 69 10/23/18 15:34 Resp BP 129/66 10/23/18 15:34 Pulse Ox Intake & Output 10/23/18 10/24/18 10/24/18 18:59 06:59 18:59 Weight 98.43 kg GENERAL: Well-developed in no acute distress. HEENT: No scleral icterus. Extraocular movements grossly intact. Hears conversational speech. No nasal drainage. NECK: Supple without lymphadenopathy. CHEST: Nonlabored respirations with equal bilateral excursions. CARDIOVASCULAR: Regular rate and regular rhythm. Distal 2+ pulses. ABDOMEN: No infection. Incisions are intact MUSCULOSKELETAL: No clubbing, cyanosis. Gross strength 5/5 distal lower extremities. NEURO: No focal or lateralizing signs. Cranial nerves 2 through 12 grossly within normal limits. PSYCH: Appropriate affect. Alert and oriented to person, place and time. SKIN: Good skin turgor. Well perfused. ASSESSMENT: 1. Morbid obesity due to excess calories 2. Body mass index of 49.2 to 37.2 3. Osteoarthritis of the knees. 4. Hypertensive heart disease. 5. Gastroesophageal reflux disease 6. Hyperlipidemia 7. Anxiety disorder 8. Depressive disorder 9. Obstructive sleep apnea 10. Diabetes type 2, insulin dependent, improved 11. Diabetic neuropathy 12. Psoriasis 13. Hiatal hernia 14. Status post gastric bypass PLAN: 1. Recommend bariatric blood work today 2. She is free to go to the gym 3. Follow up in December 2018, in 2 months Objective - Vital Signs Vital signs: Vital Signs Temp 98.4 F 10/23/18 15:34 Pulse 69 10/23/18 15:34 Resp BP 129/66 10/23/18 15:34 Pulse Ox Intake & Output 10/22/18 10/23/18 10/23/18 18:59 06:59 18:59 Weight 98.43 kg
--- NOTE | 2018-10-23 16:09 | P.PN ---
Progress Note - Text Progress Note Date: 10/23/18 To whom it may concern: Mariama Aquino is under my surgical care. She may return to work without restrictions Sunday, October 28, 2018. Regards, Stefanie Isabel MD, FACS, FICS
== END | disposition home or self-care (01) ==
LOC: BARWHC3 14:08
PROVIDERS: ATTEND Surgery Plastic and Reconstructive Surgery
DX: E66.01 Morbid (severe) obesity due to excess calories (principal); Z68.37 Body mass index [BMI] 37.0-37.9, adult
CPT/HCPCS: 97803; 99211

== ENCOUNTER → 2018-11-13 | Outpatient (CLI) | payer BC ==
[2018-11-13 09:42] LABS: Prothrombin Time 10.9 sec (9.0-12.0)
[2018-11-13 09:52] LABS: HCT 40.2 % (34.0-46.0); HGB 12.8 gm/dL (11.4-16.0); MCH 29.1 pg (25.0-35.0); MCHC 31.9 g/dL (31.0-37.0); MCV 91.3 fL (80.0-100.0); Mean Platelet Volume 7.1; Platelet Count 201 k/uL (150-450); RDW 14.1 % (11.5-15.5); WBC 3.8 k/uL (3.8-10.6)
[2018-11-13 16:45] LABS: African American GFR (CKD) 122.1 (60.0-200.0); Albumin 4.2 g/dL (3.80-4.90); Albumin/Globulin Ratio 1.91 (1.60-3.17); Anion Gap 8.7 mmol/L (4.00-12.00); BUN/Creat Ratio 15.71 Ratio (12.00-20.00); Calcium 9.2 mg/dL (8.7-10.3); Carbon Dioxide 25.3 mmol/L (21.6-31.8); Chol/HDL Ratio 5.56; Globulin 2.2 g/dL (1.6-3.3); LDL Cholesterol,Calculated 128.8 mg/dL (0.0-131.0); Magnesium 1.4 mg/dL (1.5-2.4); Phosphorus 3.2 mg/dL (2.4-5.1); Potassium 4.2 mmol/L (3.5-5.5); Total Bilirubin 0.3 mg/dL (0.3-1.2); Total Protein 6.4 g/dL (6.2-8.2); VLDL Calculation 26.2 mg/dL (5.00-40.00)
[2018-11-13 16:49] LABS: Iron Saturation 21.45 (12.00-45.00)
[2018-11-13 16:57] LABS: Ferritin 20.4 ng/mL (10.0-291.0); Vitamin D 25 Hydroxy 34.2 ng/mL (30.0-100.0)
[2018-11-13 16:59] LABS: Folate, Serum 18.4 ng/mL
[2018-11-13 19:25] LABS: Hemoglobin A1C 6.9 % (4.0-6.0)
[2018-11-14 14:17] LABS: Zinc, Serum 52 ug/dL (60-130)
[2018-11-15 06:35] LABS: Vitamin A 30 ug/dL (38-106)
[2018-11-15 06:58] LABS: Vit B1(Thiamine) 82 ug/L (38-122)
== END | disposition home or self-care (01) ==
LOC: LABWHC1 08:26
PROVIDERS: ATTEND Surgery Plastic and Reconstructive Surgery
DX: E66.01 Morbid (severe) obesity due to excess calories (principal); E21.1 Secondary hyperparathyroidism, not elsewhere classified; E89.1 Postprocedural hypoinsulinemia; D50.9 Iron deficiency anemia, unspecified; K90.9 Intestinal malabsorption, unspecified; E55.9 Vitamin D deficiency, unspecified; K74.1 Hepatic sclerosis; N19 Unspecified kidney failure; K50.90 Crohn's disease, unspecified, without complications
CPT/HCPCS: 36415; 80053; 80061; 82306; 82525; 82607; 82728; 82746; 83036; 83540; 83550; 83735; 83970; 84100; 84134; 84255; 84425; 84443; 84590; 84630; 85027; 85610; 85730

== ENCOUNTER → 2018-12-18 | Outpatient (CLI) | payer BC ==
--- NOTE | 2018-12-18 13:53 | P.PN ---
Subjective Progress Note Date: 12/18/18 DATE OF SERVICE: 12/18/2018 CHIEF COMPLAINT: Morbid obesity HISTORY OF PRESENT ILLNESS: Mariama Aquino is a 43-year-old female is status post gastric bypass 09/23/18. She is 3 months out. She reports difficulty with textured foods. She reports chest tightedness. Her blood sugar glucose are 140s with Janumet. She reports no hypoglycemia. She recently had passed out from going out and not eating. At height of 5 feet 4 inches, her ideal body weight is 154 pounds. Today, she comes in 190 pounds from 217 pounds, 2 months ago. She has lost 27 pounds in 2 months. Her highest weight was 286 pounds. Her body mass index highest was 49.2. Today her BMI is 32.6. Lifetime weight loss is 96 pounds. Percent excess weight loss is 68 %. PHYSICAL EXAM: VITAL SIGNS: Height 5 foot 4 inches, weight 190 pounds. BMI 32.6 Vital Signs Temp 97.7 F 12/18/18 15:22 Pulse 67 12/18/18 15:22 Resp BP 138/84 12/18/18 15:22 Pulse Ox GENERAL: Well-developed in no acute distress. HEENT: No scleral icterus. Extraocular movements grossly intact. Hears conversational speech. No nasal drainage. NECK: Supple without lymphadenopathy. CHEST: Nonlabored respirations with equal bilateral excursions. CARDIOVASCULAR: Regular rate and regular rhythm. Distal 2+ pulses. ABDOMEN: No infection. Incisions are intact MUSCULOSKELETAL: No clubbing, cyanosis. Gross strength 5/5 distal lower extremities. NEURO: No focal or lateralizing signs. Cranial nerves 2 through 12 grossly w ithin normal limits. PSYCH: Appropriate affect. Alert and oriented to person, place and time. SKIN: Good skin turgor. Well perfused. LABS: Hgb A1C down and improved. Vitamin A is low. Magnesium is low. Zinc is low. ASSESSMENT: 1. Morbid obesity due to excess calories 2. Body mass index of 49.2 to 32.6 3. Osteoarthritis of the knees. 4. Hypertensive heart disease. 5. Gastroesophageal reflux disease 6. Hyperlipidemia 7. Anxiety disorder 8. Depressive disorder 9. Obstructive sleep apnea 10. Diabetes type 2, insulin dependent, improved 11. Diabetic neuropathy 12. Psoriasis 13. Hiatal hernia 14. Status post gastric bypass PLAN: 1. She is 3 months out. 2. Recommend upper endoscopy with dilation, EGD with dilation. 3. Follow up in February2019 for Hgb A1C 4. Recommend protein intake of 60 g 5. Recommend Vitamin A supplement.
[2018-12-18 14:02] VITALS: BMI 32.5
[2018-12-18 15:28] VITALS: BP 138/84; PULSE 67; TEMP 97.7
== END | disposition home or self-care (01) ==
LOC: BARWHC3 13:06
PROVIDERS: ATTEND Surgery Plastic and Reconstructive Surgery
DX: E66.01 Morbid (severe) obesity due to excess calories (principal); M17.0 Bilateral primary osteoarthritis of knee; I11.9 Hypertensive heart disease without heart failure; K21.9 Gastro-esophageal reflux disease without esophagitis; E78.5 Hyperlipidemia, unspecified; F41.9 Anxiety disorder, unspecified; F32.9 Major depressive disorder, single episode, unspecified; G47.33 Obstructive sleep apnea (adult) (pediatric); E11.9 Type 2 diabetes mellitus without complications; E11.40 Type 2 diabetes mellitus with diabetic neuropathy, unspecified; L40.9 Psoriasis, unspecified; K44.9 Diaphragmatic hernia without obstruction or gangrene; Z68.32 Body mass index [BMI] 32.0-32.9, adult; Z79.4 Long term (current) use of insulin; Z98.84 Bariatric surgery status
CPT/HCPCS: 97803; 99211

== ENCOUNTER 2018-12-26 07:19 | Day surgery (SDC) | payer BC ==
[2018-12-25 11:26] VITALS: BMI 32.4
[~2018-12-26 07:19] MED LIST changes: -CHLORHEXIDINE GLUCONATE 15 ML CUP MUCOUS MEM ONE; -ENOXAPARIN 40 MG/0.4 ML SYRINGE SQ STA; -HYDROmorphone 0.5 MG/0.5 ML SYRINGE IVP PRN; +LACTATED RINGERS 1,000 ML IV SCH; -PANTOPRAZOLE 40 MG/10 ML VIAL IV STA; -SCOPOLAMINE 1.5MG/72HR PATCH TRANSDERM ONE
[2018-12-26 07:35] VITALS: RESP 18; TEMP 97.8
--- NOTE | 2018-12-26 07:41 | P.GSHP ---
History of Present Illness H&P Date: 12/26/18 CHIEF COMPLAINT: GERD HISTORY OF PRESENT ILLNESS: The patient is a 43-year-old female who presents reports gastroesophageal reflux disease. Upper endoscopy was offered for further evaluation and management. PAST MEDICAL HISTORY: Please see list. PAST SURGICAL HISTORY: Please see list. MEDICATIONS: Please see list. ALLERGIES: Please see list. SOCIAL HISTORY: No illicit drug use FAMILY HISTORY: No reports of Crohn disease or ulcerative colitis. REVIEW OF ORGAN SYSTEMS: CONSTITUTIONAL: No reports of fevers or chills. GI: Denies any blood in stools or constipation. PHYSICAL EXAM: VITAL SIGNS: Stable GENERAL: Well-developed and pleasant in no acute distress. HEENT: No scleral icterus. Extraocular movements grossly intact. Moist buccal mucosa. NECK: Supple without lymphadenopathy. CHEST: Unlabored respirations. Equal bilateral excursions. CARDIOVASCULAR: Regular rate and rhythm. Distal 2+ pulses. ABDOMEN: Soft, nondistended. MUSCULOSKELETAL: No clubbing, cyanosis, or edema. ASSESSMENT: 1. Gastroesophageal reflux disease PLAN: 1. Recommend proceeding with an upper endoscopy Past Medical History Past Medical History: Diabetes Mellitus, GERD/Reflux, Hypertension, Neurologic Disorder Additional Past Medical History / Comment(s): Type 2 DM, diabetic neuropathy to bilateral feet, psoriasis. Hx. of Sleep Apnea. Hx. of asthma years ago. History of Any Multi-Drug Resistant Organisms: None Reported Past Surgical History: Adenoidectomy, Bariatric Surgery, Cholecystectomy, Tonsillectomy Additional Past Surgical History / Comment(s): Lipoma removed from right hip in 2016, gastric bypass 09-23-18, EGD. Past Anesthesia/Blood Transfusion Reactions: Motion Sickness, Postoperative Nausea & Vomiting (PONV) Additional Past Anesthesia/Blood Transfusion Reaction / Comment(s): No blood transfusion to date Smoking Status: Former smoker - Past Family History Mother Family Medical History: AICD/Pacemaker, Hypertension Additional Family Medical History / Comment(s): maternal hx of diabetes Father History Unknown: Yes Family Medical History: Deep Vein Thrombosis (DVT) Medications and Allergies Home Medications Medication Instructions Recorded Confirmed Type buPROPion HCL [Wellbutrin SR] 200 mg PO BID 09/08/15 12/25/18 History Clobetasol Propionate [Temovate 1 applic TOPICAL BID PRN 03/21/18 12/25/18 History 0.05% Cream] Triamcinolone 0.1% Cream [Kenalog 1 applic TOPICAL TID PRN 03/21/18 12/25/18 History 0.1% Cream] Gabapentin [Neurontin] 300 mg PO TID 05/13/18 12/25/18 History Omeprazole 40 mg PO DAILY #30 cap 09/24/18 12/25/18 Rx sitaGLIPtin PHOS/metFORMIN HCL 1 tab PO DAILY 11/20/18 12/25/18 History [Janumet Xr 50-1,000 mg Tablet] Lisinopril [Prinivil] 5 mg PO DAILY 12/25/18 12/25/18 History Multivitamins, Thera [Multivitamin 1 tab PO DAILY 12/25/18 12/25/18 History (formulary)] Allergies Allergy/AdvReac Type Severity Reaction Status Date / Time environmental AdvReac Mild Unknown Uncoded 12/25/18 11:32 Surgical - Exam Vital Signs Temp Pulse Resp BP Pulse Ox 97.8 F 69 18 153/62 100 12/26/18 07:33 12/26/18 07:33 12/26/18 07:33 12/26/18 07:33 12/26/18 07:33
[2018-12-26 07:42] LABS: Glucose,Whole Blood 109 mg/dL (75-99)
[2018-12-26] MEDS ORDERED: LACTATED RINGERS 1,000 ML IV ONE (07:43)
[2018-12-26] MEDS ORDERED: LIDOCAINE 1% INJ 10MG/ML (20 ML MDV) ONE (08:07)
[2018-12-26] MEDS ORDERED: PROPOFOL 10 MG/ML 20 ML VIAL IV ONE (08:07)
--- NOTE | 2018-12-26 08:37 | P.PCN ---
Date of Procedure: 12/26/18 Description of Procedure: PREOPERATIVE DIAGNOSIS: Dysphagia. Nausea with vomiting. Morbid obesity. Diabetes type 2. POSTOPERATIVE DIAGNOSIS: Gastrojejunal stricture without chronic ulcer without perforation Dysphagia. Nausea with vomiting. Morbid obesity. Diabetes type 2. OPERATION: Esophagogastrojejunoscopy with balloon dilatation from 10 to 15 mm. SURGEON: Stefanie Isabel MD ANESTHESIA: MAC. INDICATIONS: The patient is a 43-year-old female who presents with a history of dysphagia, gastric bypass including new-onset nausea and vomiting. Benefits and risks of the procedure were described. Informed consent was obtained. DESCRIPTION: The patient was brought into the endoscopy suite and laid in the left lateral decubitus position. After a timeout was confirmed, the procedure was initiated. An Olympus gastroscope was passed along the posterior oropharynx down to the distal esophagus where the squamocolumnar junction was unremarkable. The gastric pouch was entered. A gastrojejunal stricture of 10 mm was found as the adult gastroscope was 9.5 mm in size. A [employer] Platform balloon dilator was placed through the scope. Final insufflation up to 15 mm was performed with a total of 2 minutes. The scope was advanced up to 60 cm from the incisors into the Ham limb. The mucosa of the gastrojejunal anastomosis was intact. No chronic gastrojejunal marginal ulcer was encountered. No full-thickness injury was encountered. The GI tract was desufflated. The patient tolerated the procedure well. FINDINGS: Stricture of approximately 10 mm encountered. No chronic gastrojejunal ulceration encountered. Successful balloon dilatation to 15 mm. RECOMMENDATIONS: Continue omeprazole 40 mg daily Plan - Discharge Summary Discharge Rx Participant: Yes New Discharge Prescriptions: New RX: Omeprazole 40 mg PO DAILY #90 capsule.dr No Action RX: buPROPion HCL [Wellbutrin SR] 200 mg PO BID RX: Triamcinolone 0.1% Cream [Kenalog 0.1% Cream] 1 applic TOPICAL TID PRN PRN Reason: Rash RX: Clobetasol Propionate [Temovate 0.05% Cream] 1 applic TOPICAL BID PRN PRN Reason: psoriasis RX: Gabapentin [Neurontin] 300 mg PO TID RX: Omeprazole 40 mg PO DAILY #30 cap sitaGLIPtin PHOS/metFORMIN HCL [Janumet Xr 50-1,000 mg Tablet] 1 tab PO DAILY Multivitamins, Thera [Multivitamin (formulary)] 1 tab PO DAILY Lisinopril [Prinivil] 5 mg PO DAILY Discharge Medication List RX: buPROPion HCL [Wellbutrin SR] 200 mg PO BID 09/08/15 [History] RX: Clobetasol Propionate [Temovate 0.05% Cream] 1 applic TOPICAL BID PRN 03/21/18 [History] RX: Triamcinolone 0.1% Cream [Kenalog 0.1% Cream] 1 applic TOPICAL TID PRN 03/21/18 [History] RX: Gabapentin [Neurontin] 300 mg PO TID 05/13/18 [History] RX: Omeprazole 40 mg PO DAILY #30 cap 09/24/18 [Rx] sitaGLIPtin PHOS/metFORMIN HCL [Janumet Xr 50-1,000 mg Tablet] 1 tab PO DAILY 11/20/18 [History] Lisinopril [Prinivil] 5 mg PO DAILY 12/25/18 [History] Multivitamins, Thera [Multivitamin (formulary)] 1 tab PO DAILY 12/25/18 [History] RX: Omeprazole 40 mg PO DAILY #90 capsule. 12/26/18 [Rx] [facility]Ref[facility] [place] [place] [facility] [place] [facility] Patient Instructions/Handouts: Esophageal Dilation (DC) Activity/Diet/Wound Care/Special Instructions: Liquids today. Warm beverages starting tomorrow. Have wam beverages prior to eating meals. Discharge Disposition: HOME SELF-CARE
[2018-12-26 08:49] VITALS: BP 120/79; PULSE 67
== END 2018-12-26 09:25 | disposition home or self-care (01) ==
LOC: ORWHC2ENDO 07:19
PROVIDERS: ATTEND Surgery Plastic and Reconstructive Surgery
DX: K95.89 Other complications of other bariatric procedure (principal); K56.699 Other intestinal obstruction unspecified as to partial versus complete obstruction; E66.01 Morbid (severe) obesity due to excess calories; K21.9 Gastro-esophageal reflux disease without esophagitis; I10 Essential (primary) hypertension; E11.40 Type 2 diabetes mellitus with diabetic neuropathy, unspecified; L40.9 Psoriasis, unspecified; Z68.32 Body mass index [BMI] 32.0-32.9, adult; Z87.09 Personal history of other diseases of the respiratory system; Z90.89 Acquired absence of other organs; Z90.49 Acquired absence of other specified parts of digestive tract; Z87.2 Personal history of diseases of the skin and subcutaneous tissue; Z87.898 Personal history of other specified conditions; Z91.89 Other specified personal risk factors, not elsewhere classified; Z87.891 Personal history of nicotine dependence; Z79.899 Other long term (current) drug therapy; Z79.52 Long term (current) use of systemic steroids; Z79.84 Long term (current) use of oral hypoglycemic drugs; Z91.09 Other allergy status, other than to drugs and biological substances; Z82.49 Family history of ischemic heart disease and other diseases of the circulatory system; Z83.3 Family history of diabetes mellitus
CPT/HCPCS: 81025; 43245; J1100; J2405; J2001; J2704; C1726

== ENCOUNTER → 2019-02-10 | Outpatient (CLI) | payer BC ==
[2019-02-10 08:24] LABS: Basophils # (A) 0.1 k/uL (0-0.2); Basophils % (A) 1 %; Eosinophils # (A) 0.3 k/uL (0-0.7); Eosinophils % (A) 7 %; HCT 42.7 % (34.0-46.0); HGB 13.9 gm/dL (11.4-16.0); Lymphocytes % (A) 48 %; MCH 29.9 pg (25.0-35.0); MCHC 32.5 g/dL (31.0-37.0); Mean Platelet Volume 8.5; Monocytes # (A) 0.3 k/uL (0-1.0); Monocytes % (A) 7 %; Neutrophils # (A) 1.5 k/uL (1.3-7.7); Neutrophils % (A) 36 %; Platelet Count 201 k/uL (150-450); RBC 4.64 m/uL (3.80-5.40); RDW 12.9 % (11.5-15.5); WBC 4.2 k/uL (3.8-10.6)
[2019-02-10 16:34] LABS: % Iron Saturation 27.7 (12.00-45.00); African American GFR (CKD) 122.1 (60.0-200.0); Albumin 4.3 g/dL (3.80-4.90); Albumin/Globulin Ratio 2.05 (1.60-3.17); Anion Gap 5.5 mmol/L (4.00-12.00); Calcium 9.5 mg/dL (8.7-10.3); Carbon Dioxide 27.5 mmol/L (21.6-31.8); Chol/HDL Ratio 5.62; Ferritin 18.9 ng/mL (10.0-291.0); Globulin 2.1 g/dL (1.6-3.3); LDL Cholesterol,Calculated 188.2 mg/dL (0.0-131.0); Non-African American GFR(CKD) 105.4 (60.0-200.0); Potassium 4.3 mmol/L (3.5-5.5); Total Bilirubin 0.4 mg/dL (0.2-1.2); Total Protein 6.4 g/dL (6.2-8.2); VLDL Calculation 28.8 mg/dL (5.00-40.00)
[2019-02-10 16:59] LABS: Magnesium 1.6 mg/dL (1.5-2.4)
[2019-02-10 18:41] LABS: Hemoglobin A1C 6.5 % (4.0-6.0)
[2019-02-11 14:17] LABS: Vitamin A 37 ug/dL (38-106)
== END | disposition home or self-care (01) ==
LOC: LABWHC1 07:55
PROVIDERS: ATTEND Family Medicine
DX: I10 Essential (primary) hypertension (principal); E11.65 Type 2 diabetes mellitus with hyperglycemia; Z98.84 Bariatric surgery status; E78.2 Mixed hyperlipidemia
CPT/HCPCS: 36415; 80053; 80061; 82607; 82728; 83036; 83540; 83550; 83735; 84134; 84425; 84590; 85025

== ENCOUNTER → 2019-03-25 | Outpatient (CLI) | payer BC ==
[2019-03-25 13:02] LABS: HCT 39.3 % (34.0-46.0); HGB 12.9 gm/dL (11.4-16.0); MCH 29.2 pg (25.0-35.0); MCHC 32.8 g/dL (31.0-37.0); MCV 89.2 fL (80.0-100.0); Mean Platelet Volume 8.1; Platelet Count 215 k/uL (150-450); RDW 12.9 % (11.5-15.5); WBC 4.9 k/uL (3.8-10.6)
[2019-03-25 13:07] LABS: Partial Thromboplastin Time 24.4 sec (22.0-30.0); Prothrombin Time 10.3 sec (9.0-12.0)
[2019-03-25 19:14] LABS: % Iron Saturation 25.95 (12.00-45.00); African American GFR (CKD) 128.5 (60.0-200.0); Albumin 4.2 g/dL (3.80-4.90); Albumin/Globulin Ratio 1.83 (1.60-3.17); Anion Gap 8.1 mmol/L (4.00-12.00); BUN/Creat Ratio 18.33 Ratio (12.00-20.00); Calcium 9.4 mg/dL (8.7-10.3); Carbon Dioxide 26.9 mmol/L (21.6-31.8); Chol/HDL Ratio 4.51; Ferritin 14.5 ng/mL (10.0-291.0); Folate, Serum 19.6 ng/mL; Globulin 2.3 g/dL (1.6-3.3); LDL Cholesterol,Calculated 147.8 mg/dL (0.0-131.0); Non-African American GFR(CKD) 110.9 (60.0-200.0); Potassium 3.9 mmol/L (3.5-5.5); Total Bilirubin 0.4 mg/dL (0.2-1.2); Total Protein 6.5 g/dL (6.2-8.2); VLDL Calculation 24.2 mg/dL (5.00-40.00)
[2019-03-25 19:17] LABS: Magnesium 1.7 mg/dL (1.5-2.4); Phosphorus 3.7 mg/dL (2.4-5.1)
[2019-03-25 21:09] LABS: Hemoglobin A1C 6.6 % (4.0-6.0)
[2019-03-26 13:08] LABS: Zinc, Serum 65 ug/dL (60-130)
[2019-03-27 07:54] LABS: Vitamin A 29 ug/dL (38-106)
== END ==
LOC: LABWHC1 11:58
PROVIDERS: ATTEND Surgery Plastic and Reconstructive Surgery
DX: E66.01 Morbid (severe) obesity due to excess calories (principal); E21.1 Secondary hyperparathyroidism, not elsewhere classified; D50.9 Iron deficiency anemia, unspecified; E44.0 Moderate protein-calorie malnutrition; E55.9 Vitamin D deficiency, unspecified; K74.1 Hepatic sclerosis; N19 Unspecified kidney failure; K50.90 Crohn's disease, unspecified, without complications
CPT/HCPCS: 36415; 80053; 80061; 82306; 82525; 82607; 82728; 82746; 83036; 83540; 83550; 83735; 83970; 84100; 84134; 84255; 84425; 84443; 84590; 84630; 85027; 85610; 85730

== ENCOUNTER → 2019-03-26 | Outpatient (CLI) | payer BC ==
[2019-03-26 16:18] VITALS: BP 115/64; PULSE 62; RESP 16; TEMP 98.1; BMI 30.7
--- NOTE | 2019-03-26 16:49 | P.PN ---
Subjective Progress Note Date: 03/26/19 DATE OF SERVICE: 03/26/2019 CHIEF COMPLAINT: Status post gastric bypass HISTORY OF PRESENT ILLNESS: Mariama Aquino is a 43-year-old female is status post gastric bypass 09/23/18. She is 6 months out. She reports increased energy. She denies any gastroesophageal reflux disease. No reports of dysphagia. She denies any abdominal pain. At height of 5 feet 4 inches, her ideal body weight is 144 pounds. Her highest weight was 286 pounds. Her body mass index highest was 49.2. Today, she comes in 180 pounds from 190 pounds, 3 months ago. She has lost 9 pounds in 3 months. Today her BMI is 30.7. Lifetime weight loss is 106 pounds. Percent excess weight loss is 74 %. PHYSICAL EXAM: VITAL SIGNS: Height 5 foot 4 inches, weight 180 pounds. BMI 30.7 Vital Signs Temp 98.1 F 03/26/19 16:15 Pulse 62 03/26/19 16:15 Resp 16 03/26/19 16:15 BP 115/64 03/26/19 16:15 Pulse Ox GENERAL: Well-developed in no acute distress. HEENT: No scleral icterus. Extraocular movements grossly intact. Hears conversational speech. No nasal drainage. NECK: Supple without lymphadenopathy. CHEST: Nonlabored respirations with equal bilateral excursions. CARDIOVASCULAR: Regular rate and regular rhythm. Distal 2+ pulses. ABDOMEN: Soft, nontender. No hernia. MUSCULOSKELETAL: No clubbing, cyanosis. NEURO: No focal or lateralizing signs. Cranial nerves 2 through 12 grossly within normal limits. PSYCH: Appropriate affect. Alert and oriented to person, place and time. SKIN: Good skin turgor. Well perfused. ASSESSMENT: 1. Morbid obesity due to excess calories 2. Body mass index of 49.2 to 30.7 3. Osteoarthritis of the knees. 4. Hypertensive heart disease. 5. Gastroesophageal reflux disease 6. Hyperlipidemia 7. Anxiety disorder 8. Depressive disorder 9. Obstructive sleep apnea 10. Diabetes type 2, insulin dependent, improved 11. Diabetic neuropathy 12. Psoriasis 13. Hiatal hernia 14. Status post gastric bypass PLAN: 1. Recommend bariatric labs 2. Overall, she is doing well. Objective - Vital Signs Vital signs: Vital Signs Temp 98.1 F 03/26/19 16:15 Pulse 62 03/26/19 16:15 Resp 16 03/26/19 16:15 BP 115/64 03/26/19 16:15 Pulse Ox Intake & Output 03/25/19 03/26/19 03/26/19 18:59 06:59 18:59 Weight 81.193 kg
== END | disposition home or self-care (01) ==
LOC: BARWHC3 15:27
PROVIDERS: ATTEND Surgery Plastic and Reconstructive Surgery
DX: E66.01 Morbid (severe) obesity due to excess calories (principal); Z68.30 Body mass index [BMI] 30.0-30.9, adult; M17.0 Bilateral primary osteoarthritis of knee; K21.9 Gastro-esophageal reflux disease without esophagitis; I11.9 Hypertensive heart disease without heart failure; E78.5 Hyperlipidemia, unspecified; F41.9 Anxiety disorder, unspecified; F32.9 Major depressive disorder, single episode, unspecified; G47.33 Obstructive sleep apnea (adult) (pediatric); E11.40 Type 2 diabetes mellitus with diabetic neuropathy, unspecified; L40.9 Psoriasis, unspecified; K44.9 Diaphragmatic hernia without obstruction or gangrene; Z98.84 Bariatric surgery status
CPT/HCPCS: 97803; 99211

== ENCOUNTER → 2022-04-26 | Outpatient (CLI) | payer BC ==
[2022-04-26 17:23] VITALS: BP 136/84; PULSE 71; TEMP 98.3; BMI 34.7
--- NOTE | 2022-04-26 17:49 | P.HPBAR ---
Bariatric H&P - History & Physicial H&P Date: 04/26/22 History & Physicial: Visit/CC: RYGB F/U Patient initial contact: Initial weight: 117.651 kg Initial weight in pounds: 259.38 Height: 5 ft 4 in Initial BMI: 44.5 Last weight: Current weight: 91.626 kg Current weight in pounds: 202.00 Current BMI: 34.7 [place] body weight (based on NIH guidelines): 54.431 kg Excess body weight loss: 41.1% The patient is a 46 year-old F who presents for Bariatric Assessment. Recommend labs. Recommend food diary journal. She is eating bread again. She is anemia. She no longer has hair loss. Past Medical History Past Medical History: Diabetes Mellitus, GERD/Reflux, Hypertension, Neurologic Disorder Additional Past Medical History / Comment(s): Type 2 DM, diabetic neuropathy to bilateral feet, psoriasis. Hx. of Sleep Apnea. Hx. of asthma years ago. History of Any Multi-Drug Resistant Organisms: None Reported Past Surgical History: Adenoidectomy, Bariatric Surgery, Cholecystectomy, Tonsillectomy Additional Past Surgical History / Comment(s): Lipoma removed from right hip in 2016, gastric bypass 09-23-18, EGD. Past Anesthesia/Blood Transfusion Reactions: Motion Sickness, Postoperative Nausea & Vomiting (PONV) Additional Past Anesthesia/Blood Transfusion Reaction / Comm: No blood transfusion to date Past Psychological History: Anxiety, Depression Additional Psychological History / Comment(s): takes wellbutrin, bupropion, paxil, and xanax as prescribed and is well controlled Smoking Status: Former smoker Past Alcohol Use History: Rare Additional Past Alcohol Use History / Comment(s): stopped smoking in 2005 Past Drug Use History: None Reported - Past Family History Mother Family Medical History: AICD/Pacemaker, Hypertension Additional Family Medical History / Comment(s): maternal hx of diabetes Father History Unknown: Yes Family Medical History: Deep Vein Thrombosis (DVT) Surgical - Exam Vital Signs Temp Pulse BP 98.3 F 71 136/84 04/26/22 17:14 04/26/22 17:14 04/26/22 17:14 Bariatric Checklist Checklist: Plan: Checklist: EGD: 1. Hiatal hernia: 2. H. Pylori: HgbA1c: Vitamin D: Smoking: Former smoker Primary care physician referral: wendi sifuentes Psychiatry clearance: Cardiology clearance: Sleep study: Diet journal: VTE risk score: VTE risk level: Rehab needs at discharge:
== END ==
LOC: BARWHC3 16:23
PROVIDERS: ATTEND Surgery Plastic and Reconstructive Surgery
DX: E66.01 Morbid (severe) obesity due to excess calories (principal); Z87.891 Personal history of nicotine dependence; E11.9 Type 2 diabetes mellitus without complications; K21.9 Gastro-esophageal reflux disease without esophagitis; I10 Essential (primary) hypertension; Z68.34 Body mass index [BMI] 34.0-34.9, adult; Z91.048 Other nonmedicinal substance allergy status
CPT/HCPCS: 99211